=== PATIENT | female | born 1975 | race Caucasian/White ===

== ENCOUNTER 2017-11-28 11:24 | Inpatient (IN) | payer BC, MEDICARE ==
[~2017-11-28] VITALS: Ht 162.6 cm; Wt 60.3 kg
[2017-11-28] MEDS ORDERED: VANCOMYCIN PER PHARMACY MC PRN (11:30)
[2017-11-28] MEDS ORDERED: PIPERACILLIN/TAZO/PMX 3.375GM 50 ML IV ONE (11:30)
[2017-11-28] MEDS ORDERED: SODIUM CHLORIDE FLUSH 10ML SYR IVF ONE (11:30)
[2017-11-28] MEDS ORDERED: MIDAZOLAM HCL 25 MG in SODIUM CHLORIDE 0.9% 245 ML IV PRN (11:30)
[2017-11-28] MEDS ORDERED: FENTANYL PF 2,500 MCG in SODIUM CHLORIDE 0.9% 200 ML IV PRN ×2 (11:30→17:30)
[2017-11-28] MEDS ORDERED: SODIUM CHLORIDE 0.9% 1,000ML IVBOLUS ONE (11:30)
[2017-11-28] MEDS ORDERED: PROPOFOL 100 ML IV ONE (11:38)
[2017-11-28] MEDS ORDERED: PIPERACILLIN/TAZO/PMX 3.375GM 50 ML ONE (11:39)
[2017-11-28] MEDS ORDERED: PROPOFOL 100 ML IV PRN (12:00)
[2017-11-28] MEDS ORDERED: PLEASE ENTER HEIGHT AND WEIGHT MC SCH (12:00)
[2017-11-28 12:01] LABS: MICROSCOPIC NOT IND
[2017-11-28 12:04] LABS: CULTURE INDICATED? NO
[2017-11-28] MEDS ORDERED: FENTANYL PF 100 MCG/2ML ONE (12:13)
[2017-11-28] MEDS: PLEASE ENTER ALLERGIES MC SCH ×2 (12:30→13:01)
[2017-11-28 12:47] LABS: AMPHETAMINE SCREEN, URINE Negative (Negative); BARBITURATE SCREEN, URINE Negative (Negative); BENZODIAZEPINE SCREEN, URINE Positive (Negative); CANNABINOID SCREEN, URINE Negative (Negative); COCAINE SCREEN, URINE Negative (Negative); METHADONE SCREEN, URINE Negative (Negative); OPIATE SCREEN, URINE Negative (Negative)
[2017-11-28 12:53] LABS: RAPID INFLUENZA A Negative (Negative); RAPID INFLUENZA B Negative (Negative)
[2017-11-28] MEDS ORDERED: FENTANYL PF 100 MCG/2ML IVPush PRN ×2 (13:00→15:00)
[2017-11-28] MEDS ORDERED: VECURONIUM 10 MG ONE (13:24)
[2017-11-28 13:31] LABS: MEAN CORPUSCULAR HEMOGLOBIN 25.1 pg (27.0-34.8); MEAN CORPUSCULAR HGB CONC 31.4 g/dL (32.4-35.8); MEAN CORPUSCULAR VOLUME 79.8 fL (80-100); MEAN PLATELET VOLUME 7.5 fL (7.4-10.4); PLATELET COUNT 197 x10^3/uL (130-400); RED CELL DISTRIBUTION WIDTH 26.5 % (9.6-15.2)
[2017-11-28 13:42] LABS: ALANINE AMINOTRANSFERASE 57 U/L (12-78); ALBUMIN 2.5 g/dL (3.4-5.0); ANION GAP 8 mmol/L (5-15); CALCIUM 7.6 mg/dL (8.5-10.1); CHLORIDE 111 mmol/L (98-107)
[2017-11-28 13:46] LABS: ALKALINE PHOSPHATASE 135 U/L (45-117); BILIRUBIN,TOTAL 0.4 mg/dL (0.2-1.0); TOTAL PROTEIN 5.4 g/dL (6.4-8.2)
[2017-11-28 13:51] LABS: BASOPHILS # (AUTO) 0.02 x10^3/uL (0-0.1); BASOPHILS % (AUTO) 0 % (0-1); EOSINOPHILS # (AUTO) 0.02 x10^3/uL (0-0.4); EOSINOPHILS % (AUTO) 0 % (1-7); LYMPHOCYTES # (AUTO) 0.43 x10^3/uL (1-3.4); LYMPHOCYTES % (AUTO) 3 % (22-44); MD SCAN; MONOCYTES # (AUTO) 0.43 x10^3/uL (0.2-0.8); MONOCYTES % (AUTO) 3 % (2-9); NEUTROPHILS # (AUTO) 11.77 x10^3/uL (1.8-6.8); NEUTROPHILS % (AUTO) 93 % (42-75)
[2017-11-28] MEDS ORDERED: VECURONIUM 10 MG IVPush ONE (14:00)
[2017-11-28] MEDS ORDERED: NOREPINEPHRINE 4 MG in SODIUM CHLORIDE 0.9% 246 ML IV PRN (14:00)
[2017-11-28] MEDS ORDERED: FENTANYL PF 100 MCG/2ML IV ONE (14:00)
[2017-11-28] MEDS ORDERED: POLYETHYLENE GLYCOL 17 GM PACKET PO PRN (14:30)
[2017-11-28] MEDS ORDERED: BISACODYL 10 MG SUPP PR PRN ×2 (14:30→15:00)
[2017-11-28] MEDS ORDERED: LIDOCAINE-MPF 1%, 2ML ENDO PRN (15:00)
[2017-11-28] MEDS ORDERED: FAMOTIDINE 20 MG/2 ML IV SCH (15:00)
[2017-11-28] MEDS ORDERED: PHARMACY MAY ADJ FOR RENAL FX MC SCH (15:00)
[2017-11-28] MEDS ORDERED: SENNOSIDES 8.8 MG/5 ML ORAL SOL NG PRN (15:00)
[2017-11-28] MEDS ORDERED: LACTULOSE 20 GM/30 ML UDC NG PRN (15:00)
[2017-11-28] MEDS ORDERED: SENNA/DOCUSATE TABLET NG PRN (15:00)
[2017-11-28] MEDS: ENOXAPARIN 40 MG/0.4 ML SQ SCH (16:52)
[2017-11-28 17:37] LABS: TROPONIN I 0.025 ng/mL (0.000-0.045)
[2017-11-28] MEDS ORDERED: POTASSIUM CHLORIDE PMX 100 ML IV ONE (18:00)
[2017-11-28] MEDS ORDERED: MAGNESIUM SULFATE PMX 2GM/50ML 50 ML IV ONE (18:00)
[2017-11-28] MEDS: PROPOFOL 100 ML IV PRN (18:14)
[2017-11-28] MEDS: ALBUTEROL/IPRATROPIUM 2.5MG/0.5MG, 3 ML INLINE SCH ×2 (19:00→22:21)
[2017-11-28] MEDS: FAMOTIDINE 20 MG/2 ML IVPush SCH (20:20)
[2017-11-28 23:25] LABS: TROPONIN I 0.021 ng/mL (0.000-0.045)
[2017-11-29] MEDS: PROPOFOL 100 ML IV PRN (00:53)
[2017-11-29] MEDS: ALBUTEROL/IPRATROPIUM 2.5MG/0.5MG, 3 ML INLINE SCH ×2 (02:56→07:00)
[2017-11-29 03:30] VITALS: BP 98/59
[2017-11-29 04:51] LABS: ANION GAP 8 mmol/L (5-15); CALCIUM 7.6 mg/dL (8.5-10.1); CHLORIDE 112 mmol/L (98-107)
[2017-11-29 04:52] LABS: ALANINE AMINOTRANSFERASE 42 U/L (12-78); ALBUMIN 2.2 g/dL (3.4-5.0)
[2017-11-29 04:54] LABS: ALKALINE PHOSPHATASE 108 U/L (45-117); BILIRUBIN,TOTAL 0.6 mg/dL (0.2-1.0); CREATININE 0.81 mg/dL (0.55-1.02); TOTAL PROTEIN 4.8 g/dL (6.4-8.2)
[2017-11-29 05:02] LABS: MEAN CORPUSCULAR HGB CONC 31.9 g/dL (32.4-35.8); MEAN CORPUSCULAR VOLUME 78.5 fL (80-100); MEAN PLATELET VOLUME 7.8 fL (7.4-10.4); PLATELET COUNT 176 x10^3/uL (130-400); RED BLOOD COUNT 3.78 x10^6/uL (3.82-5.3); RED CELL DISTRIBUTION WIDTH 26.5 % (9.6-15.2)
[2017-11-29 05:59] LABS: BASOPHILS # (AUTO) 0.03 x10^3/uL (0-0.1); BASOPHILS % (AUTO) 0 % (0-1); EOSINOPHILS % (AUTO) 2 % (1-7); LYMPHOCYTES # (AUTO) 1.18 x10^3/uL (1-3.4); LYMPHOCYTES % (AUTO) 18 % (22-44); MD SCAN; MONOCYTES # (AUTO) 0.47 x10^3/uL (0.2-0.8); MONOCYTES % (AUTO) 7 % (2-9); NEUTROPHILS # (AUTO) 4.93 x10^3/uL (1.8-6.8); NEUTROPHILS % (AUTO) 73 % (42-75)
[2017-11-29] MEDS: FAMOTIDINE 20 MG/2 ML IVPush SCH ×2 (09:29→20:00)
[2017-11-29] MEDS ORDERED: SUMATRIPTAN 100 MG TABLET PO ONE (09:30)
[2017-11-29] MEDS: NICOTINE 14MG/24 HR PATCH.TD24 TD SCH (12:19)
[2017-11-29] MEDS ORDERED: LORazepam 0.5MG TABLET PO ONE (12:30)
[2017-11-29] MEDS: SUMATRIPTAN 100 MG TABLET PO PRN (12:35)
[2017-11-29 14:14] LABS: HCG UR SG 1.008 (1.003-1.030)
[2017-11-29] MEDS ORDERED: CARV3.1212 PO (14:57)
[2017-11-29] MEDS ORDERED: SUMA100T3 PO (14:57)
[2017-11-29] MEDS ORDERED: TRAM50TA2 PO (14:57)
[2017-11-29] MEDS ORDERED: DULO60CA7 PO (14:57)
[2017-11-29] MEDS ORDERED: OLAN5TAB3 PO (14:57)
[2017-11-29] MEDS ORDERED: FURO40TA6 PO (14:57)
[2017-11-29] MEDS ORDERED: BACL-19 PO (14:57)
[2017-11-29] MEDS ORDERED: LEVO50TA5 PO (14:57)
[2017-11-29] MEDS ORDERED: FERR325T18 PO (14:57)
[2017-11-29] MEDS ORDERED: CLON-364 PO (14:57)
[2017-11-29] MEDS ORDERED: LISI-465 PO (14:57)
[2017-11-29] MEDS ORDERED: HYDR50TA13 PO (14:57)
[2017-11-29] MEDS ORDERED: TOPI100T24 PO (14:57)
[2017-11-29] MEDS: ENOXAPARIN 40 MG/0.4 ML SQ SCH (15:33)
[2017-11-29] MEDS: ACETAMINOPHEN 325 MG TABLET PO PRN ×2 (15:33→23:34)
[2017-11-29] MEDS: BACLOFEN 10 MG TABLET PO PRN (16:30)
[2017-11-29] MEDS: FERROUS SULFATE 325 MG TABLET PO SCH (17:39)
[2017-11-29 18:12] VITALS: BP 113/75
[2017-11-29 18:44] VITALS: BP 107/77
[2017-11-29] MEDS: OLANZAPINE 5 MG TABLET PO SCH (20:00)
[2017-11-29] MEDS: TOPIRAMATE 100 MG TABLET PO SCH (20:00)
[2017-11-29] MEDS: ALBUTEROL SULFATE 2.5 MG/3 ML NPPB PRN (22:45)
[2017-11-30 00:07] VITALS: BP 93/60
[2017-11-30] MEDS ORDERED: DIPHENHYDRAMINE 50 MG CAPSULE ONE (00:43)
[2017-11-30] MEDS: DIPHENHYDRAMINE 50 MG CAPSULE PO PRN ×2 (00:45→20:25)
[2017-11-30 05:35] LABS: MEAN CORPUSCULAR HEMOGLOBIN 24.9 pg (27.0-34.8); MEAN CORPUSCULAR HGB CONC 31.3 g/dL (32.4-35.8); MEAN CORPUSCULAR VOLUME 79.6 fL (80-100); MEAN PLATELET VOLUME 8.5 fL (7.4-10.4); PLATELET COUNT 182 x10^3/uL (130-400); RED BLOOD COUNT 4.16 x10^6/uL (3.82-5.3); RED CELL DISTRIBUTION WIDTH 26.9 % (9.6-15.2)
[2017-11-30 05:38] LABS: ANION GAP 7 mmol/L (5-15); CALCIUM 8.3 mg/dL (8.5-10.1); CHLORIDE 108 mmol/L (98-107); CREATININE 0.87 mg/dL (0.55-1.02)
[2017-11-30 06:19] LABS: BASOPHILS # (AUTO) 0.05 x10^3/uL (0-0.1); BASOPHILS % (AUTO) 1 % (0-1); EOSINOPHILS # (AUTO) 0.07 x10^3/uL (0-0.4); EOSINOPHILS % (AUTO) 1 % (1-7); LYMPHOCYTES # (AUTO) 1.52 x10^3/uL (1-3.4); LYMPHOCYTES % (AUTO) 17 % (22-44); MD SCAN; MONOCYTES # (AUTO) 0.71 x10^3/uL (0.2-0.8); MONOCYTES % (AUTO) 8 % (2-9); NEUTROPHILS # (AUTO) 6.45 x10^3/uL (1.8-6.8); NEUTROPHILS % (AUTO) 73 % (42-75)
[2017-11-30] MEDS ORDERED: FUROSEMIDE 40 MG TABLET PO SCH (09:00)
[2017-11-30 09:28] VITALS: BP 97/68
[2017-11-30] MEDS: CARVEDILOL 3.125 MG TABLET PO SCH (09:30)
[2017-11-30] MEDS: DULOXETINE 30 MG CAPSULE.DR PO SCH (09:30)
[2017-11-30] MEDS: LISINOPRIL 5 MG TABLET PO SCH (09:30)
[2017-11-30] MEDS: FERROUS SULFATE 325 MG TABLET PO SCH ×2 (09:31→20:24)
[2017-11-30] MEDS: FAMOTIDINE 20 MG/2 ML IVPush SCH (09:31)
[2017-11-30] MEDS: LEVOTHYROXINE 50 MCG TABLET PO SCH (09:31)
[2017-11-30] MEDS ORDERED: ONDA4TAB10 PO (11:51)
[2017-11-30] MEDS ORDERED: TRAM50TA2 PO (11:51)
[2017-11-30] MEDS ORDERED: CLON-364 PO (11:51)
[2017-11-30] MEDS ORDERED: BACL-19 PO (11:51)
[2017-11-30] MEDS ORDERED: TOPI100T24 PO (11:51)
[2017-11-30] MEDS ORDERED: ROPI0.5T2 PO (11:51)
[2017-11-30] MEDS ORDERED: ZIPR60CA2 PO (11:51)
[2017-11-30] MEDS ORDERED: MIRT45TA4 PO (11:51)
[2017-11-30] MEDS: NICOTINE 14MG/24 HR PATCH.TD24 TD SCH (12:06)
[2017-11-30 13:41] VITALS: BP 119/85
[2017-11-30] MEDS ORDERED: FUROSEMIDE 40 MG/4 ML IV ONE (15:00)
[2017-11-30] MEDS: ALBUTEROL SULFATE 2.5 MG/3 ML NPPB PRN (15:13)
[2017-11-30] MEDS: ENOXAPARIN 40 MG/0.4 ML SQ SCH (15:21)
[2017-11-30] MEDS ORDERED: OMNIPAQUE 350 MG/ML, 100ML BOTTLE ONE (16:57)
[2017-11-30 18:56] VITALS: BP 101/68
[2017-11-30] MEDS: OLANZAPINE 5 MG TABLET PO SCH (20:24)
[2017-11-30] MEDS: TOPIRAMATE 100 MG TABLET PO SCH (20:24)
[2017-11-30] MEDS: FAMOTIDINE 20 MG TABLET PO SCH (20:24)
[2017-11-30] MEDS: BACLOFEN 10 MG TABLET PO PRN (20:24)
[2017-12-01 00:58] VITALS: BP 98/63
[2017-12-01 02:53] VITALS: BP 108/82
[2017-12-01] MEDS ORDERED: PHARMACOKINETIC MONITORING MC PRN (03:30)
[2017-12-01] MEDS ORDERED: VANCOMYCIN PER PHARMACY MC PRN (03:30)
[2017-12-01] MEDS: CEFTRIAXONE PMX 1GM/50ML 50 ML IV SCH (03:41)
[2017-12-01] MEDS: ACETAMINOPHEN 325 MG TABLET PO PRN (03:51)
[2017-12-01] MEDS: VANCOMYCIN PMX 1GM/200ML 200 ML IV SCH ×2 (04:37→18:12)
[2017-12-01 05:30] LABS: CHLORIDE 107 mmol/L (98-107)
[2017-12-01 05:39] LABS: ALANINE AMINOTRANSFERASE 36 U/L (12-78); ALBUMIN 2.6 g/dL (3.4-5.0); ALKALINE PHOSPHATASE 154 U/L (45-117); ANION GAP 8 mmol/L (5-15); BILIRUBIN,TOTAL 0.5 mg/dL (0.2-1.0); CALCIUM 8.3 mg/dL (8.5-10.1); TOTAL PROTEIN 6.2 g/dL (6.4-8.2)
[2017-12-01 05:44] LABS: MEAN CORPUSCULAR HEMOGLOBIN 25.2 pg (27.0-34.8); MEAN CORPUSCULAR HGB CONC 31.8 g/dL (32.4-35.8); MEAN CORPUSCULAR VOLUME 79.2 fL (80-100); MEAN PLATELET VOLUME 8.7 fL (7.4-10.4); PLATELET COUNT 207 x10^3/uL (130-400); RED BLOOD COUNT 4.11 x10^6/uL (3.82-5.3); RED CELL DISTRIBUTION WIDTH 26.8 % (9.6-15.2)
[2017-12-01 06:13] LABS: MD MORPH REVIEW ONLY
[2017-12-01 06:16] LABS: BASOPHILS # (AUTO) 0.01 x10^3/uL (0-0.1); BASOPHILS % (AUTO) 0 % (0-1); EOSINOPHILS % (AUTO) 1 % (1-7); LYMPHOCYTES # (AUTO) 0.74 x10^3/uL (1-3.4); LYMPHOCYTES % (AUTO) 6 % (22-44); MONOCYTES % (AUTO) 7 % (2-9); NEUTROPHILS # (AUTO) 9.88 x10^3/uL (1.8-6.8); NEUTROPHILS % (AUTO) 86 % (42-75)
[2017-12-01 06:18] LABS: ANISOCYTOSIS 2+
[2017-12-01 06:19] LABS: MICROCYTOSIS 1+; OVALOCYTES 1+; POLYCHROMASIA 1+
[2017-12-01 06:22] LABS: HYPOCHROMIA 1+
[2017-12-01 06:23] LABS: <PLATELET ESTIMATE> ADEQUATE; <PLT MORPHOLOGY> NORMAL PLT MORPH
[2017-12-01 07:55] VITALS: BP 109/71
[2017-12-01] MEDS: DULOXETINE 30 MG CAPSULE.DR PO SCH (08:39)
[2017-12-01] MEDS: LISINOPRIL 5 MG TABLET PO SCH (08:40)
[2017-12-01] MEDS: FAMOTIDINE 20 MG TABLET PO SCH ×2 (08:40→22:16)
[2017-12-01] MEDS: FERROUS SULFATE 325 MG TABLET PO SCH ×2 (08:40→17:00)
[2017-12-01] MEDS: NICOTINE 14MG/24 HR PATCH.TD24 TD SCH (08:41)
[2017-12-01] MEDS: LEVOTHYROXINE 50 MCG TABLET PO SCH (08:41)
[2017-12-01] MEDS: CARVEDILOL 3.125 MG TABLET PO SCH (08:44)
[2017-12-01 14:00] VITALS: BP 108/76
[2017-12-01] MEDS ORDERED: POTASSIUM CHLORIDE 20 MEQ TAB.ER.PRT PO ONE ×2 (16:30→21:30)
[2017-12-01] MEDS: FUROSEMIDE 40 MG/4 ML IV SCH (17:00)
[2017-12-01] MEDS: ENOXAPARIN 40 MG/0.4 ML SQ SCH (18:12)
[2017-12-01 20:03] VITALS: BP 102/72
[2017-12-01] MEDS: DIPHENHYDRAMINE 50 MG CAPSULE PO PRN (22:15)
[2017-12-01] MEDS: OLANZAPINE 5 MG TABLET PO SCH (22:15)
[2017-12-01] MEDS: TOPIRAMATE 100 MG TABLET PO SCH (22:16)
[2017-12-01] MEDS: BACLOFEN 10 MG TABLET PO PRN (22:19)
[2017-12-02] MEDS: CEFTRIAXONE PMX 1GM/50ML 50 ML IV SCH (03:47)
[2017-12-02 04:00] VITALS: BP 105/75
[2017-12-02] MEDS: VANCOMYCIN PMX 1GM/200ML 200 ML IV SCH ×2 (05:29→17:55)
[2017-12-02 07:34] LABS: MEAN CORPUSCULAR HGB CONC 31.6 g/dL (32.4-35.8); MEAN CORPUSCULAR VOLUME 79.2 fL (80-100); MEAN PLATELET VOLUME 8.5 fL (7.4-10.4); PLATELET COUNT 242 x10^3/uL (130-400); RED BLOOD COUNT 4.39 x10^6/uL (3.82-5.3); RED CELL DISTRIBUTION WIDTH 26.3 % (9.6-15.2)
[2017-12-02 07:40] LABS: ALBUMIN 2.6 g/dL (3.4-5.0); ANION GAP 7 mmol/L (5-15); CALCIUM 8.6 mg/dL (8.5-10.1); CHLORIDE 109 mmol/L (98-107)
[2017-12-02 07:44] LABS: ALANINE AMINOTRANSFERASE 34 U/L (12-78); ALKALINE PHOSPHATASE 154 U/L (45-117); BILIRUBIN,TOTAL 0.5 mg/dL (0.2-1.0); CREATININE 0.95 mg/dL (0.55-1.02); TOTAL PROTEIN 6.6 g/dL (6.4-8.2)
[2017-12-02 07:49] LABS: BASOPHILS # (AUTO) 0.03 x10^3/uL (0-0.1); BASOPHILS % (AUTO) 0 % (0-1); EOSINOPHILS # (AUTO) 0.25 x10^3/uL (0-0.4); EOSINOPHILS % (AUTO) 2 % (1-7); LYMPHOCYTES # (AUTO) 0.98 x10^3/uL (1-3.4); LYMPHOCYTES % (AUTO) 9 % (22-44); MD SCAN; MONOCYTES # (AUTO) 0.77 x10^3/uL (0.2-0.8); MONOCYTES % (AUTO) 7 % (2-9); NEUTROPHILS # (AUTO) 8.48 x10^3/uL (1.8-6.8); NEUTROPHILS % (AUTO) 81 % (42-75)
[2017-12-02 08:00] VITALS: BP 106/77
[2017-12-02] MEDS: DULOXETINE 30 MG CAPSULE.DR PO SCH (08:03)
[2017-12-02] MEDS: FERROUS SULFATE 325 MG TABLET PO SCH ×2 (08:03→16:18)
[2017-12-02] MEDS: ACETAMINOPHEN 325 MG TABLET PO PRN (08:04)
[2017-12-02] MEDS: LEVOTHYROXINE 50 MCG TABLET PO SCH (08:05)
[2017-12-02] MEDS: LISINOPRIL 5 MG TABLET PO SCH (08:05)
[2017-12-02] MEDS: NICOTINE 14MG/24 HR PATCH.TD24 TD SCH (08:05)
[2017-12-02] MEDS: CARVEDILOL 3.125 MG TABLET PO SCH (08:05)
[2017-12-02] MEDS: FAMOTIDINE 20 MG TABLET PO SCH ×2 (08:06→21:44)
[2017-12-02] MEDS ORDERED: ONDANSETRON 2MG/ML, 2ML ONE (16:06)
[2017-12-02] MEDS: FUROSEMIDE 40 MG/4 ML IV SCH (16:17)
[2017-12-02] MEDS: ENOXAPARIN 40 MG/0.4 ML SQ SCH (16:19)
[2017-12-02] MEDS ORDERED: ONDANSETRON 4 MG TABLET PO PRN (16:30)
[2017-12-02] MEDS ORDERED: ONDANSETRON 2MG/ML, 2ML IVPush PRN (16:30)
[2017-12-02] MEDS ORDERED: CARVEDILOL 3.125 MG TABLET PO ONE (17:00)
[2017-12-02 17:31] VITALS: BP 109/77
[2017-12-02] MEDS ORDERED: LABETALOL 5MG/ML, 20ML ONE (17:47)
[2017-12-02] MEDS ORDERED: LABETALOL 5MG/ML, 20ML IVPush ONE (18:00)
[2017-12-02 18:44] LABS: TROPONIN I < 0.015 ng/mL (0.000-0.045)
[2017-12-02 20:19] VITALS: BP 90/61
[2017-12-02] MEDS: BACLOFEN 10 MG TABLET PO PRN (21:44)
[2017-12-02] MEDS: SUMATRIPTAN 100 MG TABLET PO PRN (21:44)
[2017-12-02] MEDS: DIPHENHYDRAMINE 50 MG CAPSULE PO PRN (21:44)
[2017-12-02] MEDS: TOPIRAMATE 100 MG TABLET PO SCH (21:44)
[2017-12-02] MEDS: OLANZAPINE 5 MG TABLET PO SCH (21:45)
[2017-12-02 23:31] LABS: TROPONIN I < 0.015 ng/mL (0.000-0.045)
[2017-12-03 02:15] VITALS: BP 90/65
[2017-12-03] MEDS: CEFTRIAXONE PMX 1GM/50ML 50 ML IV SCH (03:07)
[2017-12-03] MEDS: VANCOMYCIN PMX 1GM/200ML 200 ML IV SCH (05:19)
[2017-12-03 05:46] LABS: ALBUMIN 2.7 g/dL (3.4-5.0); ANION GAP 7 mmol/L (5-15); CALCIUM 8.4 mg/dL (8.5-10.1); CHLORIDE 104 mmol/L (98-107)
[2017-12-03 05:52] LABS: ALANINE AMINOTRANSFERASE 49 U/L (12-78); ALKALINE PHOSPHATASE 194 U/L (45-117); BILIRUBIN,TOTAL 0.4 mg/dL (0.2-1.0); TOTAL PROTEIN 6.7 g/dL (6.4-8.2); TROPONIN I < 0.015 ng/mL (0.000-0.045)
[2017-12-03 06:06] LABS: MEAN CORPUSCULAR HEMOGLOBIN 25.2 pg (27.0-34.8); MEAN CORPUSCULAR HGB CONC 31.4 g/dL (32.4-35.8); MEAN CORPUSCULAR VOLUME 80.3 fL (80-100); MEAN PLATELET VOLUME 8.7 fL (7.4-10.4); PLATELET COUNT 282 x10^3/uL (130-400); RED BLOOD COUNT 4.23 x10^6/uL (3.82-5.3); RED CELL DISTRIBUTION WIDTH 25.9 % (9.6-15.2)
[2017-12-03 06:33] LABS: BASOPHILS # (AUTO) 0.05 x10^3/uL (0-0.1); BASOPHILS % (AUTO) 1 % (0-1); EOSINOPHILS # (AUTO) 0.09 x10^3/uL (0-0.4); EOSINOPHILS % (AUTO) 1 % (1-7); LYMPHOCYTES # (AUTO) 1.77 x10^3/uL (1-3.4); LYMPHOCYTES % (AUTO) 18 % (22-44); MD SCAN; MONOCYTES # (AUTO) 1.02 x10^3/uL (0.2-0.8); MONOCYTES % (AUTO) 11 % (2-9); NEUTROPHILS # (AUTO) 6.66 x10^3/uL (1.8-6.8); NEUTROPHILS % (AUTO) 70 % (42-75)
[2017-12-03 07:32] VITALS: BP 98/67
[2017-12-03] MEDS: CARVEDILOL 3.125 MG TABLET PO SCH (09:00)
[2017-12-03] MEDS: LISINOPRIL 5 MG TABLET PO SCH (09:00)
[2017-12-03] MEDS: LEVOTHYROXINE 50 MCG TABLET PO SCH (09:08)
[2017-12-03] MEDS: FERROUS SULFATE 325 MG TABLET PO SCH ×2 (09:09→17:30)
[2017-12-03] MEDS: FAMOTIDINE 20 MG TABLET PO SCH ×2 (09:09→22:27)
[2017-12-03] MEDS: DULOXETINE 30 MG CAPSULE.DR PO SCH (09:09)
[2017-12-03] MEDS: NICOTINE 14MG/24 HR PATCH.TD24 TD SCH (11:43)
[2017-12-03 16:00] VITALS: BP 93/66
[2017-12-03] MEDS: ENOXAPARIN 40 MG/0.4 ML SQ SCH (17:30)
[2017-12-03 20:59] VITALS: BP 95/66
[2017-12-03] MEDS: ALBUTEROL SULFATE 2.5 MG/3 ML NPPB PRN (21:13)
[2017-12-03] MEDS ORDERED: CAPSAICIN CRM 0.025%, 60GM TP PRN (22:00)
[2017-12-03] MEDS: OLANZAPINE 5 MG TABLET PO SCH (22:26)
[2017-12-03] MEDS: TOPIRAMATE 100 MG TABLET PO SCH (22:27)
[2017-12-03] MEDS: BACLOFEN 10 MG TABLET PO PRN (22:44)
[2017-12-04 01:43] VITALS: BP 94/61
[2017-12-04] MEDS: CEFTRIAXONE PMX 1GM/50ML 50 ML IV SCH (03:51)
[2017-12-04] MEDS ORDERED: VANCOMYCIN 1,200 MG in SODIUM CHLORIDE 0.9% 250 ML IV SCH (05:00)
[2017-12-04 06:32] LABS: ANION GAP 8 mmol/L (5-15); CHLORIDE 105 mmol/L (98-107); CREATININE 0.87 mg/dL (0.55-1.02)
[2017-12-04 06:33] LABS: ALANINE AMINOTRANSFERASE 39 U/L (12-78); ALBUMIN 2.4 g/dL (3.4-5.0)
[2017-12-04 06:37] LABS: ALKALINE PHOSPHATASE 182 U/L (45-117); BILIRUBIN,TOTAL 0.3 mg/dL (0.2-1.0); TOTAL PROTEIN 5.7 g/dL (6.4-8.2)
[2017-12-04 06:53] LABS: MEAN CORPUSCULAR HEMOGLOBIN 25.2 pg (27.0-34.8); MEAN CORPUSCULAR HGB CONC 31.4 g/dL (32.4-35.8); MEAN CORPUSCULAR VOLUME 80.2 fL (80-100); MEAN PLATELET VOLUME 8.5 fL (7.4-10.4); PLATELET COUNT 228 x10^3/uL (130-400); RED BLOOD COUNT 3.63 x10^6/uL (3.82-5.3); RED CELL DISTRIBUTION WIDTH 26.2 % (9.6-15.2)
[2017-12-04 07:50] VITALS: BP 100/69
[2017-12-04 07:53] LABS: BASOPHILS # (AUTO) 0.03 x10^3/uL (0-0.1); BASOPHILS % (AUTO) 0 % (0-1); EOSINOPHILS # (AUTO) 0.17 x10^3/uL (0-0.4); EOSINOPHILS % (AUTO) 2 % (1-7); LYMPHOCYTES % (AUTO) 11 % (22-44); MD SCAN; MONOCYTES # (AUTO) 0.66 x10^3/uL (0.2-0.8); MONOCYTES % (AUTO) 8 % (2-9); NEUTROPHILS # (AUTO) 6.63 x10^3/uL (1.8-6.8); NEUTROPHILS % (AUTO) 79 % (42-75)
[2017-12-04] MEDS ORDERED: FURO40TA6 PO (08:16)
[2017-12-04] MEDS ORDERED: SULF1TAB24 PO (08:22)
[2017-12-04 09:30] VITALS: BP 104/69
[2017-12-04] MEDS: LEVOTHYROXINE 50 MCG TABLET PO SCH (09:32)
[2017-12-04] MEDS: DULOXETINE 30 MG CAPSULE.DR PO SCH (09:32)
[2017-12-04] MEDS: CARVEDILOL 3.125 MG TABLET PO SCH (09:32)
[2017-12-04] MEDS: LISINOPRIL 5 MG TABLET PO SCH (09:32)
[2017-12-04] MEDS: FERROUS SULFATE 325 MG TABLET PO SCH (09:32)
[2017-12-04] MEDS: FAMOTIDINE 20 MG TABLET PO SCH (09:33)
[2017-12-04] MEDS: NICOTINE 14MG/24 HR PATCH.TD24 TD SCH (11:35)
== END 2017-12-04 13:38 | disposition home or self-care (01) | DRG 871 ==
LOC: ED 11:51 → EDIP 11:52 → ED 12:11 → CCU 13:08 → 5SO 11-29 18:06 → DCLOUNGE 12-04 12:53
PROVIDERS: ADMIT Hospitalist; ATTEND Hospitalist
PROC: 0T9B70Z Drainage of Bladder with Drainage Device, Via Natural or Artificial Opening (ICD-10-PCS; principal; 2017-11-28)
PROC: 5A1935Z Respiratory Ventilation, Less than 24 Consecutive Hours (ICD-10-PCS; 2017-11-28)
PROC: 0BH17EZ Insertion of Endotracheal Airway into Trachea, Via Natural or Artificial Opening (ICD-10-PCS; 2017-11-28)
DX: A41.9 Sepsis, unspecified organism (principal); I50.23 Acute on chronic systolic (congestive) heart failure; J96.01 Acute respiratory failure with hypoxia; E43 Unspecified severe protein-calorie malnutrition; Z99.11 Dependence on respirator [ventilator] status; F15.90 Other stimulant use, unspecified, uncomplicated; D50.9 Iron deficiency anemia, unspecified; E87.6 Hypokalemia; F41.9 Anxiety disorder, unspecified; I27.20 Pulmonary hypertension, unspecified; I34.0 Nonrheumatic mitral (valve) insufficiency; F32.9 Major depressive disorder, single episode, unspecified; F17.200 Nicotine dependence, unspecified, uncomplicated; Z71.51 Drug abuse counseling and surveillance of drug abuser; Z71.6 Tobacco abuse counseling; Z71.41 Alcohol abuse counseling and surveillance of alcoholic; Z85.3 Personal history of malignant neoplasm of breast; Z86.718 Personal history of other venous thrombosis and embolism; Z90.13 Acquired absence of bilateral breasts and nipples; Z92.21 Personal history of antineoplastic chemotherapy; Z68.22 Body mass index [BMI] 22.0-22.9, adult
CPT/HCPCS: 36415; 36600; 51702; 71045; 71275; 80048; 80053; 80202; 80307; 81003; 81025; 82533; 82803; 83605; 83735; 83880; 84100; 84132; 84145; 84478; 84484; 85025; 87040; 87070; 87077; 87081; 87086; 87147; 87186; 87205; 87400; 93005; 93306; 93970; 94002; 94003; 94640; 96365; 96375; J0696; J1650; J1940; J2405; J2543; J2704; J3010; J3370; J3480; J7613; J7620; Q9967; J3475; J7030; J7050; S0028

== ENCOUNTER 2018-01-19 00:41 | Inpatient (IN) | payer BC, MEDICARE ==
[~2018-01-19] VITALS: Ht 175.3 cm; Wt 56.4 kg
[~2018-01-19 00:41] MED LIST: BACL-19 PO; CARV3.1212 PO; CLON-364 PO; DULO60CA7 PO; FERR325T18 PO; FURO40TA6 PO; HYDR50TA13 PO; LEVO50TA5 PO; LISI-465 PO; MIRT45TA4 PO; OLAN5TAB3 PO; ONDA4TAB10 PO; ROPI0.5T2 PO; SULF1TAB24 PO; SUMA100T3 PO; TOPI100T24 PO; TRAM50TA2 PO; ZIPR60CA2 PO
[2018-01-19] MEDS ORDERED: LAMO100T5 PO (01:03)
[2018-01-19] MEDS ORDERED: NOREPINEPHRINE 4 MG in SODIUM CHLORIDE 0.9% 246 ML IV PRN (01:30)
[2018-01-19] MEDS ORDERED: HYDR25CA PO (01:31)
[2018-01-19 01:33] LABS: MEAN CORPUSCULAR HEMOGLOBIN 25.2 pg (27.0-34.8); MEAN CORPUSCULAR HGB CONC 31.8 g/dL (32.4-35.8); MEAN CORPUSCULAR VOLUME 79.3 fL (80-100); MEAN PLATELET VOLUME 8.3 fL (7.4-10.4); PLATELET COUNT 331 x10^3/uL (130-400); RED BLOOD COUNT 6.07 x10^6/uL (3.82-5.3); RED CELL DISTRIBUTION WIDTH 21.3 % (9.6-15.2)
[2018-01-19 01:40] LABS: ALBUMIN 2.8 g/dL (3.4-5.0); ANION GAP 11 mmol/L (5-15); CALCIUM 8.1 mg/dL (8.5-10.1); CHLORIDE 102 mmol/L (98-107); CREATININE 1.25 mg/dL (0.55-1.02)
[2018-01-19 01:43] LABS: TROPONIN I 0.022 ng/mL (0.000-0.045)
[2018-01-19] MEDS ORDERED: CEFTRIAXONE PMX 1GM/50ML 50 ML ONE (01:50)
[2018-01-19] MEDS ORDERED: VANCOMYCIN 1,200 MG in SODIUM CHLORIDE 0.9% 250 ML IV ONE (02:00)
[2018-01-19] MEDS ORDERED: VANCOMYCIN PER PHARMACY IV ONE (02:00)
[2018-01-19] MEDS ORDERED: CEFTRIAXONE PMX 1GM/50ML 50 ML IVPB ONE (02:00)
[2018-01-19] MEDS ORDERED: SODIUM CHLORIDE 0.9% 1,000ML IVBOLUS ONE (02:00)
[2018-01-19 02:11] LABS: BASOPHILS % (AUTO) 0 % (0-1); EOSINOPHILS % (AUTO) 0 % (1-7); LYMPHOCYTES # (AUTO) 0.88 x10^3/uL (1-3.4); LYMPHOCYTES % (AUTO) 5 % (22-44); MD SCAN; MONOCYTES # (AUTO) 0.77 x10^3/uL (0.2-0.8); MONOCYTES % (AUTO) 4 % (2-9); NEUTROPHILS # (AUTO) 17.97 x10^3/uL (1.8-6.8); NEUTROPHILS % (AUTO) 92 % (42-75)
[2018-01-19] MEDS ORDERED: ONDANSETRON 2MG/ML, 2ML IVPush PRN (04:30)
[2018-01-19 05:05] VITALS: BP 100/69
[2018-01-19] MEDS ORDERED: hydrALAzine 20 MG/ML, 1ML IVPush PRN (09:30)
[2018-01-19] MEDS ORDERED: ONDANSETRON ODT 4 MG PO PRN (09:30)
[2018-01-19] MEDS ORDERED: ACETAMINOPHEN 325 MG TABLET PO PRN (09:30)
[2018-01-19] MEDS ORDERED: DOCUSATE 100 MG CAPSULE PO PRN (09:30)
[2018-01-19] MEDS ORDERED: POLYETHYLENE GLYCOL 17 GM PACKET PO PRN (09:30)
[2018-01-19] MEDS ORDERED: BISACODYL 10 MG SUPP PR PRN (09:30)
[2018-01-19 09:52] VITALS: BP 104/71
[2018-01-19] MEDS ORDERED: HYDROXYZINE PAMOATE 50MG CAP ONE (10:12)
[2018-01-19 10:31] LABS: MICROSCOPIC NOT IND
[2018-01-19 10:33] LABS: CULTURE INDICATED? NO
[2018-01-19 10:54] LABS: TROPONIN I 0.025 ng/mL (0.000-0.045)
[2018-01-19] MEDS: HEPARIN 5,000 UNITS/ML, 1ML SQ SCH ×2 (11:14→18:30)
[2018-01-19] MEDS: HYDROXYZINE PAMOATE 25MG CAP PO SCH ×3 (11:14→20:30)
[2018-01-19 13:47] VITALS: BP 101/72
[2018-01-19 16:24] LABS: TROPONIN I 0.028 ng/mL (0.000-0.045)
[2018-01-19] MEDS: POTASSIUM CHLORIDE 20 MEQ TAB.ER.PRT PO SCH (16:25)
[2018-01-19] MEDS ORDERED: NICOTINE 14MG/24 HR PATCH.TD24 ONE (16:42)
[2018-01-19] MEDS ORDERED: NICOTINE 14MG/24 HR PATCH.TD24 TD SCH (17:00)
[2018-01-19] MEDS: SODIUM CHLORIDE FLUSH 10ML SYR IVF SCH (20:29)
[2018-01-19] MEDS: BACLOFEN 10 MG TABLET PO SCH (20:29)
[2018-01-19] MEDS: ZIPRASIDONE 20MG CAPSULE PO SCH (20:30)
[2018-01-19] MEDS: SUMATRIPTAN 100 MG TABLET PO SCH (20:30)
[2018-01-19 20:39] VITALS: BP 101/69
[2018-01-19] MEDS ORDERED: ROPINIROLE 0.5MG TABLET PO SCH (21:00)
[2018-01-19] MEDS ORDERED: OLANZAPINE 5 MG TABLET PO SCH (21:00)
[2018-01-19] MEDS ORDERED: TOPIRAMATE 100 MG TABLET PO SCH (21:00)
[2018-01-19] MEDS ORDERED: LAMOTRIGINE 100 MG TABLET PO SCH (21:00)
[2018-01-19] MEDS ORDERED: MIRTAZAPINE 15 MG TAB.RAPDIS PO SCH (21:00)
[2018-01-19] MEDS ORDERED: NICOTINE GUM 2 MG BC PRN (21:30)
[2018-01-19 21:34] VITALS: BP 93/63
[2018-01-20 00:35] VITALS: BP 109/75
[2018-01-20] MEDS ORDERED: LORazepam 1MG TABLET PO PRN (01:30)
[2018-01-20] MEDS: HEPARIN 5,000 UNITS/ML, 1ML SQ SCH ×2 (05:27→14:21)
[2018-01-20] MEDS: HYDROXYZINE PAMOATE 25MG CAP PO SCH ×2 (05:28→11:23)
[2018-01-20 05:45] LABS: BASOPHILS # (AUTO) 0.02 x10^3/uL (0-0.1); BASOPHILS % (AUTO) 0 % (0-1); EOSINOPHILS # (AUTO) 0.09 x10^3/uL (0-0.4); EOSINOPHILS % (AUTO) 1 % (1-7); LYMPHOCYTES # (AUTO) 2.03 x10^3/uL (1-3.4); LYMPHOCYTES % (AUTO) 28 % (22-44); MD NO; MEAN CORPUSCULAR HGB CONC 31.2 g/dL (32.4-35.8); MEAN CORPUSCULAR VOLUME 80.4 fL (80-100); MEAN PLATELET VOLUME 8.5 fL (7.4-10.4); MONOCYTES % (AUTO) 10 % (2-9); NEUTROPHILS # (AUTO) 4.45 x10^3/uL (1.8-6.8); NEUTROPHILS % (AUTO) 61 % (42-75); PLATELET COUNT 231 x10^3/uL (130-400); RED BLOOD COUNT 4.28 x10^6/uL (3.82-5.3); RED CELL DISTRIBUTION WIDTH 21.5 % (9.6-15.2)
[2018-01-20 05:52] LABS: CHLORIDE 110 mmol/L (98-107)
[2018-01-20] MEDS ORDERED: LEVOTHYROXINE 50 MCG TABLET PO SCH (06:00)
[2018-01-20 06:01] LABS: ALANINE AMINOTRANSFERASE 24 U/L (12-78); ALBUMIN 2.7 g/dL (3.4-5.0); ALKALINE PHOSPHATASE 134 U/L (45-117); ANION GAP 6 mmol/L (5-15); BILIRUBIN,TOTAL 0.4 mg/dL (0.2-1.0); CALCIUM 8.2 mg/dL (8.5-10.1); CREATININE 1.05 mg/dL (0.55-1.02); TOTAL PROTEIN 5.9 g/dL (6.4-8.2)
[2018-01-20 07:15] VITALS: BP 96/61
[2018-01-20] MEDS ORDERED: LISINOPRIL 5 MG TABLET PO SCH (09:00)
[2018-01-20] MEDS ORDERED: CARVEDILOL 3.125 MG TABLET PO SCH (09:00)
[2018-01-20] MEDS ORDERED: FUROSEMIDE 20 MG TABLET PO SCH (09:00)
[2018-01-20] MEDS ORDERED: DULOXETINE 30 MG CAPSULE.DR PO SCH (09:00)
[2018-01-20] MEDS: POTASSIUM CHLORIDE 20 MEQ TAB.ER.PRT PO SCH (10:07)
[2018-01-20] MEDS: SUMATRIPTAN 100 MG TABLET PO SCH (10:08)
[2018-01-20] MEDS: BACLOFEN 10 MG TABLET PO SCH (10:08)
[2018-01-20] MEDS: ZIPRASIDONE 20MG CAPSULE PO SCH (10:08)
[2018-01-20] MEDS: SODIUM CHLORIDE FLUSH 10ML SYR IVF SCH (10:43)
[2018-01-20] MEDS ORDERED: ALPR-475 PO (11:50)
[2018-01-20] MEDS ORDERED: CARV3.1212 PO (12:40)
[2018-01-20 13:19] VITALS: BP 108/76
== END 2018-01-20 15:16 | disposition home or self-care (01) | DRG 682 ==
LOC: ED 01:58 → EDIP 04:25 → 5SO 04:55
PROVIDERS: ADMIT Internal Medicine; ATTEND Internal Medicine
DX: N17.0 Acute kidney failure with tubular necrosis (principal); J96.20 Acute and chronic respiratory failure, unspecified whether with hypoxia or hypercapnia; I50.43 Acute on chronic combined systolic (congestive) and diastolic (congestive) heart failure; E44.0 Moderate protein-calorie malnutrition; I42.9 Cardiomyopathy, unspecified; F31.9 Bipolar disorder, unspecified; I34.0 Nonrheumatic mitral (valve) insufficiency; F17.210 Nicotine dependence, cigarettes, uncomplicated; E87.6 Hypokalemia; D72.829 Elevated white blood cell count, unspecified; D64.9 Anemia, unspecified; E03.9 Hypothyroidism, unspecified; F41.9 Anxiety disorder, unspecified; G25.81 Restless legs syndrome; F15.90 Other stimulant use, unspecified, uncomplicated; M54.5 Low back pain; R73.9 Hyperglycemia, unspecified; G43.909 Migraine, unspecified, not intractable, without status migrainosus; I27.20 Pulmonary hypertension, unspecified; I95.2 Hypotension due to drugs; Z85.3 Personal history of malignant neoplasm of breast; Z90.13 Acquired absence of bilateral breasts and nipples; Z68.26 Body mass index [BMI] 26.0-26.9, adult
CPT/HCPCS: 36415; 71045; 80048; 80053; 81003; 82040; 83605; 83735; 83880; 84132; 84145; 84443; 84484; 85025; 87040; 93005; 93306; 96365; 96366; 96368; J0696; J1644; J3370; J7030; J7050

== ENCOUNTER → 2018-03-05 | Outpatient (CLI) | payer BC, MEDICARE ==
[~2018-03-05] MED LIST changes: +ALPR-475 PO; +HYDR25CA PO; +LAMO100T5 PO
== END | disposition home or self-care (01) ==
LOC: CFH 07:28
PROVIDERS: ATTEND Internal Medicine Cardiovascular Disease
DX: I42.9 Cardiomyopathy, unspecified (principal); I95.9 Hypotension, unspecified
CPT/HCPCS: 78452; A9502

== ENCOUNTER → 2018-03-12 | Outpatient (CLI) | payer BC, MEDICARE ==
[~2018-03-12] MED LIST changes: +REGADENOSON 0.4 MG/5 ML SYRINGE ONE
== END | disposition home or self-care (01) ==
LOC: RAD 10:22
PROVIDERS: ATTEND Internal Medicine Cardiovascular Disease
DX: I42.8 Other cardiomyopathies (principal); I44.7 Left bundle-branch block, unspecified
CPT/HCPCS: 78452; 93017; A9502; J2785

== ENCOUNTER 2018-03-13 18:37 | Inpatient (IN) | payer BC, MEDICARE ==
[~2018-03-13] VITALS: Ht 175.3 cm; Wt 59.3 kg
[~2018-03-13 18:37] MED LIST changes: -REGADENOSON 0.4 MG/5 ML SYRINGE ONE
[2018-03-13 21:05] LABS: AMPHETAMINE SCREEN, URINE Negative (Negative); BARBITURATE SCREEN, URINE Negative (Negative); BENZODIAZEPINE SCREEN, URINE Negative (Negative); CANNABINOID SCREEN, URINE Negative (Negative); COCAINE SCREEN, URINE Negative (Negative); METHADONE SCREEN, URINE Negative (Negative); OPIATE SCREEN, URINE Negative (Negative)
[2018-03-13] MEDS ORDERED: POLYETHYLENE GLYCOL 17 GM PACKET PO PRN (22:00)
[2018-03-13] MEDS ORDERED: PROMETHAZINE 25 MG/ML, 1ML IM PRN (22:00)
[2018-03-13] MEDS ORDERED: hydrALAzine 20 MG/ML, 1ML IVPush PRN (22:00)
[2018-03-13] MEDS ORDERED: ENOXAPARIN 40 MG/0.4 ML SQ SCH (22:00)
[2018-03-13] MEDS ORDERED: ONDANSETRON ODT 4 MG PO PRN (22:00)
[2018-03-13] MEDS ORDERED: ONDANSETRON 2MG/ML, 2ML IVPush PRN (22:00)
[2018-03-13] MEDS ORDERED: morphine SULFATE 10 MG/ML, 1ML IVPush PRN (22:00)
[2018-03-13] MEDS ORDERED: OXYcodone IR 5MG TABLET PO PRN (22:00)
[2018-03-13] MEDS ORDERED: ENALAPRILAT 1.25 MG/ML, 2ML IVPush PRN (22:00)
[2018-03-13] MEDS ORDERED: DOCUSATE 100 MG CAPSULE PO PRN (22:00)
[2018-03-13] MEDS ORDERED: BISACODYL 10 MG SUPP PR PRN (22:00)
[2018-03-13] MEDS: METOPROLOL SUCCINATE 25 MG TAB.ER.24H PO SCH (22:30)
[2018-03-13] MEDS ORDERED: FUROSEMIDE 20 MG/2 ML IV SCH (22:30)
[2018-03-13 23:28] LABS: FREE T4 (FREE THYROXINE) 1.14 ng/dL (0.76-1.46); THYROID STIMULATING HORMONE 5.8 mIU/L (0.358-3.740)
[2018-03-14] MEDS ORDERED: ALBUTEROL SULFATE 2.5 MG/3 ML NPPB PRN (01:30)
[2018-03-14 01:42] VITALS: BP 89/67
[2018-03-14 02:04] VITALS: BP 89/67
[2018-03-14 02:13] LABS: BASOPHILS # (AUTO) 0.05 x10^3/uL (0-0.1); BASOPHILS % (AUTO) 1 % (0-1); EOSINOPHILS # (AUTO) 0.07 x10^3/uL (0-0.4); EOSINOPHILS % (AUTO) 1 % (1-7); LYMPHOCYTES # (AUTO) 1.71 x10^3/uL (1-3.4); LYMPHOCYTES % (AUTO) 30 % (22-44); MD NO; MEAN CORPUSCULAR HEMOGLOBIN 24.9 pg (27.0-34.8); MEAN CORPUSCULAR HGB CONC 31.4 g/dL (32.4-35.8); MEAN CORPUSCULAR VOLUME 79.5 fL (80-100); MONOCYTES # (AUTO) 0.76 x10^3/uL (0.2-0.8); MONOCYTES % (AUTO) 13 % (2-9); NEUTROPHILS # (AUTO) 3.13 x10^3/uL (1.8-6.8); NEUTROPHILS % (AUTO) 55 % (42-75); PLATELET COUNT 319 x10^3/uL (130-400); RED BLOOD COUNT 4.46 x10^6/uL (3.82-5.3)
[2018-03-14 02:21] LABS: ALBUMIN 2.6 g/dL (3.4-5.0); ANION GAP 7 mmol/L (5-15); CALCIUM 8.4 mg/dL (8.5-10.1); CHLORIDE 100 mmol/L (98-107)
[2018-03-14 02:26] LABS: TROPONIN I < 0.015 ng/mL (0.000-0.045)
[2018-03-14 02:27] LABS: ALANINE AMINOTRANSFERASE 72 U/L (12-78); ALKALINE PHOSPHATASE 202 U/L (45-117); BILIRUBIN,TOTAL 0.7 mg/dL (0.2-1.0); CHOL/HDL RATIO 3.6; CHOLESTEROL, TOTAL 90 mg/dL (140-239); CREATININE 1.52 mg/dL (0.55-1.02); HDL CHOL % 28 % (28-40); HDL CHOLESTEROL (DIRECT) 25 mg/dL (40-60); LDL CHOLESTEROL,CALCULATED 56 mg/dL (54-169); LDL/HDL RATIO 2.2 (0.5-3.0); TOTAL PROTEIN 5.6 g/dL (6.4-8.2); TRIGLYCERIDES 45 mg/dL (50-200); VLDL CHOLESTEROL 9 mg/dL (0-25)
[2018-03-14 05:00] VITALS: BP 97/70
[2018-03-14] MEDS: METOPROLOL SUCCINATE 25 MG TAB.ER.24H PO SCH (05:07)
[2018-03-14] MEDS: ACETAMINOPHEN 325 MG TABLET PO PRN ×2 (05:07→09:59)
[2018-03-14] MEDS ORDERED: MAGNESIUM SULFATE PMX 2GM/50ML 50 ML IV ONE (07:30)
[2018-03-14 07:44] LABS: MICROSCOPIC NOT IND
[2018-03-14 07:55] LABS: CULTURE INDICATED? NO
[2018-03-14 08:22] LABS: TROPONIN I < 0.015 ng/mL (0.000-0.045)
[2018-03-14] MEDS ORDERED: FUROSEMIDE 20 MG/2 ML IV SCH (09:00)
[2018-03-14 09:50] VITALS: BP 94/66
[2018-03-14] MEDS ORDERED: SODIUM CHLORIDE 0.9% 1,000 ML IV ONE (10:15)
[2018-03-14 11:57] LABS: AMPHETAMINE SCREEN, URINE Negative (Negative); BARBITURATE SCREEN, URINE Negative (Negative); BENZODIAZEPINE SCREEN, URINE Negative (Negative); CANNABINOID SCREEN, URINE Negative (Negative); COCAINE SCREEN, URINE Negative (Negative); METHADONE SCREEN, URINE Negative (Negative); OPIATE SCREEN, URINE Positive (Negative)
[2018-03-15 19:00] LABS: HEMOGLOBIN A1C 6.2 % (4.2-6.3)
== END 2018-03-14 15:13 | disposition left against medical advice (07) | DRG 291 ==
LOC: ED 18:56 → EDIP 22:09 → 5SO 23:35
PROVIDERS: ADMIT Internal Medicine; ATTEND Internal Medicine
DX: I11.0 Hypertensive heart disease with heart failure (principal); J96.20 Acute and chronic respiratory failure, unspecified whether with hypoxia or hypercapnia; E44.0 Moderate protein-calorie malnutrition; Z68.1 Body mass index [BMI] 19.9 or less, adult; I50.43 Acute on chronic combined systolic (congestive) and diastolic (congestive) heart failure; F31.9 Bipolar disorder, unspecified; Z88.8 Allergy status to other drugs, medicaments and biological substances; D50.9 Iron deficiency anemia, unspecified; D53.9 Nutritional anemia, unspecified; E03.9 Hypothyroidism, unspecified; F17.210 Nicotine dependence, cigarettes, uncomplicated; F41.9 Anxiety disorder, unspecified; G89.29 Other chronic pain; I25.2 Old myocardial infarction; I27.20 Pulmonary hypertension, unspecified; I34.0 Nonrheumatic mitral (valve) insufficiency; I42.9 Cardiomyopathy, unspecified; Z82.49 Family history of ischemic heart disease and other diseases of the circulatory system; Z85.3 Personal history of malignant neoplasm of breast; Z86.73 Personal history of transient ischemic attack (TIA), and cerebral infarction without residual deficits; Z90.13 Acquired absence of bilateral breasts and nipples; Z90.710 Acquired absence of both cervix and uterus; Z96.659 Presence of unspecified artificial knee joint; I44.7 Left bundle-branch block, unspecified
CPT/HCPCS: 36415; 80053; 80061; 80307; 81003; 83036; 83735; 84439; 84443; 84484; 84702; 85025; 93005; 93306; 99285; Q0162; J3475

== ENCOUNTER 2018-05-13 15:15 | Inpatient (IN) | payer BC, MEDICARE ==
[~2018-05-13] VITALS: Ht 175.3 cm; Wt 60.4 kg
[~2018-05-13 15:15] MED LIST changes: +ACET325T14 PO; +ASPI-515 PO; +ATOR-2 PO; -CLON-364 PO; +CLON0.5T11 PO; +DULO30CA2 PO; +ERGO500017 PO; +FERR-51 PO; +LAMO100T PO; +LEVO75TA PO; +LEVO75TA5 PO; +LISI5TAB7 PO; +MAGN64TA7 PO; +MIRT15TA4 PO; +OLAN5TAB9 PO; +POTA20TA14 PO; +POTA20TA6 PO; +ROPI0.5T PO; +TOPI25TA32 PO
[2018-05-13 16:57] LABS: ALBUMIN 2.9 g/dL (3.4-5.0); ANION GAP 10 mmol/L (5-15); CALCIUM 8.4 mg/dL (8.5-10.1); CHLORIDE 107 mmol/L (98-107); CREATININE 0.78 mg/dL (0.55-1.02)
[2018-05-13 17:00] LABS: TROPONIN I 0.093 ng/mL (0.000-0.045)
[2018-05-13 17:02] LABS: MEAN CORPUSCULAR HGB CONC 32.2 g/dL (32.4-35.8); MEAN CORPUSCULAR VOLUME 86.8 fL (80-100); MEAN PLATELET VOLUME 7.4 fL (7.4-10.4); PLATELET COUNT 438 x10^3/uL (130-400); RED BLOOD COUNT 3.36 x10^6/uL (3.82-5.3); RED CELL DISTRIBUTION WIDTH 22.9 % (9.6-15.2)
[2018-05-13 17:25] LABS: BASOPHILS # (AUTO) 0.01 x10^3/uL (0-0.1); BASOPHILS % (AUTO) 0 % (0-1); EOSINOPHILS # (AUTO) 0.09 x10^3/uL (0-0.4); EOSINOPHILS % (AUTO) 1 % (1-7); LYMPHOCYTES # (AUTO) 0.57 x10^3/uL (1-3.4); LYMPHOCYTES % (AUTO) 9 % (22-44); MD MORPH REVIEW ONLY; MONOCYTES # (AUTO) 0.53 x10^3/uL (0.2-0.8); MONOCYTES % (AUTO) 8 % (2-9); NEUTROPHILS % (AUTO) 82 % (42-75)
[2018-05-13 17:26] LABS: ANISOCYTOSIS 1+; HYPOCHROMIA 1+; MICROCYTOSIS 1+; POLYCHROMASIA 1+
[2018-05-13 17:27] LABS: <PLATELET ESTIMATE> ADEQUATE; <PLT MORPHOLOGY> NORMAL PLT MORPH
[2018-05-13] MEDS ORDERED: morphine SULFATE 10 MG/ML, 1ML IVPush PRN (18:00)
[2018-05-13] MEDS ORDERED: ACETAMINOPHEN 325 MG TABLET PO PRN (18:00)
[2018-05-13] MEDS ORDERED: ONDANSETRON 2MG/ML, 2ML IVPush PRN (18:00)
[2018-05-13] MEDS ORDERED: DOXYCYCLINE 100MG TABLET PO ONE (18:30)
[2018-05-13] MEDS: CEFTRIAXONE 2 GM in SODIUM CHLORIDE 0.9% 50 ML IV SCH (18:37)
[2018-05-13] MEDS: HYDROcodone/APAP 5/325 TABLET PO PRN (18:38)
[2018-05-13] MEDS: SODIUM CHLORIDE 0.9% 1,000 ML IV SCH (18:38)
[2018-05-13] MEDS ORDERED: POTASSIUM CHLORIDE 20 MEQ TAB.ER.PRT PO ONE (19:00)
[2018-05-13 20:21] VITALS: BP 153/91
[2018-05-13] MEDS: OLANZAPINE 2.5 MG TABLET PO SCH (21:00)
[2018-05-13] MEDS ORDERED: NITROGLYCERIN 0.4 MG BOTTLE (25 TABS) SL ONE (21:25)
[2018-05-13 21:48] VITALS: BP 165/99
[2018-05-13] MEDS ORDERED: NITROGLYCERIN 0.4 MG BOTTLE (25 TABS) SL PRN (22:00)
[2018-05-13] MEDS ORDERED: NITROGLYCERIN SINGLE TAB 0.4 MG SL PRN (22:00)
[2018-05-13 22:02] VITALS: BP 142/82
[2018-05-13 22:21] LABS: TROPONIN I 0.089 ng/mL (0.000-0.045)
[2018-05-13] MEDS ORDERED: BACLOFEN 10 MG TABLET PO PRN (22:30)
[2018-05-13] MEDS ORDERED: OLANZAPINE 5 MG TABLET ONE (23:16)
[2018-05-13] MEDS: ROPINIROLE 0.5MG TABLET PO SCH (23:19)
[2018-05-13] MEDS: MIRTAZAPINE 15 MG TABLET PO SCH (23:20)
[2018-05-13] MEDS: LAMOTRIGINE 25 MG TABLET PO SCH (23:20)
[2018-05-14] VITALS (7 sets, daily range): BP systolic 116–173; BP diastolic 75–142
[2018-05-14] MEDS: HYDROcodone/APAP 5/325 TABLET PO PRN ×2 (01:13→12:32)
[2018-05-14] MEDS: SODIUM CHLORIDE 0.9% 1,000 ML IV SCH (03:59)
[2018-05-14 05:15] LABS: MEAN CORPUSCULAR HEMOGLOBIN 27.8 pg (27.0-34.8); MEAN CORPUSCULAR HGB CONC 32.6 g/dL (32.4-35.8); MEAN CORPUSCULAR VOLUME 85.3 fL (80-100); MEAN PLATELET VOLUME 7.3 fL (7.4-10.4); PLATELET COUNT 335 x10^3/uL (130-400); RED BLOOD COUNT 2.91 x10^6/uL (3.82-5.3)
[2018-05-14 05:24] LABS: TROPONIN I 0.089 ng/mL (0.000-0.045)
[2018-05-14 05:28] LABS: ALANINE AMINOTRANSFERASE 17 U/L (12-78); ALBUMIN 2.3 g/dL (3.4-5.0); ANION GAP 6 mmol/L (5-15); CALCIUM 7.9 mg/dL (8.5-10.1); CHLORIDE 112 mmol/L (98-107)
[2018-05-14] MEDS: LEVOTHYROXINE 75 MCG TABLET PO SCH (05:32)
[2018-05-14 05:33] LABS: ALKALINE PHOSPHATASE 197 U/L (45-117); BILIRUBIN,TOTAL 0.5 mg/dL (0.2-1.0); CREATININE 0.69 mg/dL (0.55-1.02); TOTAL PROTEIN 5.4 g/dL (6.4-8.2)
[2018-05-14 05:40] LABS: BASOPHILS # (AUTO) 0.02 x10^3/uL (0-0.1); BASOPHILS % (AUTO) 0 % (0-1); EOSINOPHILS # (AUTO) 0.13 x10^3/uL (0-0.4); EOSINOPHILS % (AUTO) 3 % (1-7); LYMPHOCYTES # (AUTO) 0.87 x10^3/uL (1-3.4); LYMPHOCYTES % (AUTO) 18 % (22-44); MD SCAN; MONOCYTES # (AUTO) 0.62 x10^3/uL (0.2-0.8); MONOCYTES % (AUTO) 13 % (2-9); NEUTROPHILS # (AUTO) 3.28 x10^3/uL (1.8-6.8); NEUTROPHILS % (AUTO) 67 % (42-75)
[2018-05-14] MEDS ORDERED: ENALAPRILAT 1.25 MG/ML, 2ML IV PRN (08:00)
[2018-05-14] MEDS: DULOXETINE 30 MG CAPSULE.DR PO SCH (09:38)
[2018-05-14] MEDS: LAMOTRIGINE 25 MG TABLET PO SCH ×2 (09:38→21:16)
[2018-05-14] MEDS: POTASSIUM CHLORIDE 20 MEQ TAB.ER.PRT PO SCH ×2 (09:38→11:39)
[2018-05-14] MEDS ORDERED: METOPROLOL TARTRATE 25 MG TABLET PO SCH (13:02)
[2018-05-14] MEDS ORDERED: DIGOXIN 0.25 MG/ML, 2ML IVPush ONE (13:30)
[2018-05-14] MEDS: IBUPROFEN 200 MG TABLET PO SCH ×2 (17:08→23:02)
[2018-05-14] MEDS: CEFTRIAXONE 2 GM in SODIUM CHLORIDE 0.9% 50 ML IV SCH (18:40)
[2018-05-14] MEDS: ROPINIROLE 0.5MG TABLET PO SCH (21:16)
[2018-05-14] MEDS: OLANZAPINE 2.5 MG TABLET PO SCH (21:16)
[2018-05-14] MEDS: MIRTAZAPINE 15 MG TABLET PO SCH (21:16)
[2018-05-15 00:08] VITALS: BP 126/92
[2018-05-15] MEDS: HYDROcodone/APAP 5/325 TABLET PO PRN ×2 (00:13→11:18)
[2018-05-15 02:16] VITALS: BP 127/87
[2018-05-15] MEDS: IBUPROFEN 200 MG TABLET PO SCH ×2 (04:48→11:12)
[2018-05-15] MEDS: LEVOTHYROXINE 75 MCG TABLET PO SCH (04:50)
[2018-05-15 05:52] LABS: MEAN CORPUSCULAR HEMOGLOBIN 27.6 pg (27.0-34.8); MEAN CORPUSCULAR HGB CONC 31.9 g/dL (32.4-35.8); MEAN CORPUSCULAR VOLUME 86.6 fL (80-100); MEAN PLATELET VOLUME 7.2 fL (7.4-10.4); PLATELET COUNT 381 x10^3/uL (130-400); RED BLOOD COUNT 3.38 x10^6/uL (3.82-5.3); RED CELL DISTRIBUTION WIDTH 22.8 % (9.6-15.2)
[2018-05-15 05:55] LABS: CHLORIDE 112 mmol/L (98-107)
[2018-05-15] MEDS ORDERED: METOPROLOL SUCCINATE 25 MG TAB.ER.24H PO SCH (06:00)
[2018-05-15 06:01] LABS: ALANINE AMINOTRANSFERASE 24 U/L (12-78); ALBUMIN 2.4 g/dL (3.4-5.0); ALKALINE PHOSPHATASE 245 U/L (45-117); ANION GAP 6 mmol/L (5-15); BILIRUBIN,TOTAL 0.6 mg/dL (0.2-1.0); CALCIUM 8.4 mg/dL (8.5-10.1); CREATININE 0.77 mg/dL (0.55-1.02); TOTAL PROTEIN 5.8 g/dL (6.4-8.2)
[2018-05-15 06:12] LABS: BASOPHILS # (AUTO) 0.05 x10^3/uL (0-0.1); BASOPHILS % (AUTO) 1 % (0-1); EOSINOPHILS # (AUTO) 0.14 x10^3/uL (0-0.4); EOSINOPHILS % (AUTO) 2 % (1-7); LYMPHOCYTES # (AUTO) 1.23 x10^3/uL (1-3.4); LYMPHOCYTES % (AUTO) 20 % (22-44); MD SCAN; MONOCYTES % (AUTO) 12 % (2-9); NEUTROPHILS # (AUTO) 3.94 x10^3/uL (1.8-6.8); NEUTROPHILS % (AUTO) 65 % (42-75)
[2018-05-15 06:32] VITALS: BP 134/78
[2018-05-15] MEDS: LAMOTRIGINE 25 MG TABLET PO SCH (08:18)
[2018-05-15] MEDS: DULOXETINE 30 MG CAPSULE.DR PO SCH (08:18)
[2018-05-15 08:54] VITALS: BP 124/87
[2018-05-15] MEDS ORDERED: OXYcodone/APAP 5/325MG TABLET PO PRN (12:30)
== END 2018-05-15 16:20 | disposition home or self-care (01) | DRG 314 ==
LOC: ED 16:33 → EDIP 16:34 → ED 17:08 → SUATTDRO 17:22 → 5SO 17:53
PROVIDERS: ADMIT Hospitalist; ATTEND Internal Medicine
PROC: 4B02XTZ Measurement of Cardiac Defibrillator, External Approach (ICD-10-PCS; principal; 2018-05-14)
DX: I31.3 Pericardial effusion (noninflammatory) (principal); J18.9 Pneumonia, unspecified organism; I42.0 Dilated cardiomyopathy; I13.0 Hypertensive heart and chronic kidney disease with heart failure and stage 1 through stage 4 chronic kidney disease, or unspecified chronic kidney disease; J96.10 Chronic respiratory failure, unspecified whether with hypoxia or hypercapnia; E03.9 Hypothyroidism, unspecified; F31.9 Bipolar disorder, unspecified; I25.10 Atherosclerotic heart disease of native coronary artery without angina pectoris; I27.20 Pulmonary hypertension, unspecified; Z53.21 Procedure and treatment not carried out due to patient leaving prior to being seen by health care provider; R79.1 Abnormal coagulation profile; F19.11 Other psychoactive substance abuse, in remission; Z96.651 Presence of right artificial knee joint; N18.3 Chronic kidney disease, stage 3 (moderate); I34.0 Nonrheumatic mitral (valve) insufficiency; I50.89 Other heart failure; I50.9 Heart failure, unspecified; Z98.891 History of uterine scar from previous surgery; Z90.49 Acquired absence of other specified parts of digestive tract; I25.2 Old myocardial infarction; Z90.13 Acquired absence of bilateral breasts and nipples; Z72.0 Tobacco use; Z82.49 Family history of ischemic heart disease and other diseases of the circulatory system; Z85.3 Personal history of malignant neoplasm of breast; Z86.73 Personal history of transient ischemic attack (TIA), and cerebral infarction without residual deficits; Z95.810 Presence of automatic (implantable) cardiac defibrillator; Z98.51 Tubal ligation status
CPT/HCPCS: 36415; 71045; 71046; 80048; 80053; 82040; 83735; 83880; 84100; 84484; 85025; 93005; 93306; 99285; J0696; J1160; J7030

== ENCOUNTER 2018-05-16 18:44 | Inpatient (IN) | payer BC, MEDICARE ==
[~2018-05-16] VITALS: Ht 175.3 cm; Wt 62.8 kg
[2018-05-16] MEDS ORDERED: SODIUM CHLORIDE FLUSH 10ML SYR IVF ONE (19:00)
[2018-05-16 19:07] LABS: MEAN CORPUSCULAR HEMOGLOBIN 27.7 pg (27.0-34.8); MEAN CORPUSCULAR HGB CONC 32.1 g/dL (32.4-35.8); MEAN CORPUSCULAR VOLUME 86.2 fL (80-100); MEAN PLATELET VOLUME 7.4 fL (7.4-10.4); PLATELET COUNT 414 x10^3/uL (130-400); RED BLOOD COUNT 3.62 x10^6/uL (3.82-5.3); RED CELL DISTRIBUTION WIDTH 22.8 % (9.6-15.2)
[2018-05-16 19:18] LABS: ALANINE AMINOTRANSFERASE 23 U/L (12-78); ALBUMIN 2.7 g/dL (3.4-5.0); ANION GAP 6 mmol/L (5-15); CALCIUM 8.1 mg/dL (8.5-10.1); CHLORIDE 110 mmol/L (98-107)
[2018-05-16 19:20] LABS: ALKALINE PHOSPHATASE 251 U/L (45-117); BILIRUBIN,TOTAL 0.4 mg/dL (0.2-1.0); CREATININE 0.78 mg/dL (0.55-1.02); TOTAL PROTEIN 6.4 g/dL (6.4-8.2)
[2018-05-16 19:31] LABS: BASOPHILS # (AUTO) 0.02 x10^3/uL (0-0.1); BASOPHILS % (AUTO) 0 % (0-1); EOSINOPHILS # (AUTO) 0.08 x10^3/uL (0-0.4); EOSINOPHILS % (AUTO) 1 % (1-7); LYMPHOCYTES # (AUTO) 1.11 x10^3/uL (1-3.4); LYMPHOCYTES % (AUTO) 11 % (22-44); MD MORPH REVIEW ONLY; MONOCYTES # (AUTO) 0.89 x10^3/uL (0.2-0.8); MONOCYTES % (AUTO) 8 % (2-9); NEUTROPHILS # (AUTO) 8.49 x10^3/uL (1.8-6.8); NEUTROPHILS % (AUTO) 80 % (42-75)
[2018-05-16 19:32] LABS: <PLATELET ESTIMATE> INCREASED; <PLT MORPHOLOGY> NORMAL PLT MORPH; ANISOCYTOSIS 1+; OVALOCYTES 1+; POLYCHROMASIA 1+
[2018-05-16 19:33] LABS: SPHEROCYTES 1+
[2018-05-16] MEDS ORDERED: ONDANSETRON 2MG/ML, 2ML ONE (19:56)
[2018-05-16] MEDS ORDERED: MORPHINE SULFATE 4 MG/ML, 1ML ONE ×2 (19:56→21:44)
[2018-05-16] MEDS ORDERED: ONDANSETRON 2MG/ML, 2ML IVPush ONE (20:00)
[2018-05-16] MEDS: MORPHINE SULFATE 4 MG/ML, 1ML IVPush PRN ×2 (20:33→21:48)
[2018-05-16] MEDS ORDERED: FUROSEMIDE 20 MG/2 ML IV ONE (21:00)
[2018-05-16] MEDS ORDERED: FUROSEMIDE 40 MG/4 ML ONE (21:18)
[2018-05-16] MEDS ORDERED: POLYETHYLENE GLYCOL 17 GM PACKET PO PRN (22:00)
[2018-05-16] MEDS ORDERED: CARVEDILOL 3.125 MG TABLET PO SCH (22:00)
[2018-05-16] MEDS ORDERED: BISACODYL 10 MG SUPP PR PRN (22:00)
[2018-05-16] MEDS ORDERED: ACETAMINOPHEN 325 MG TABLET PO PRN (22:00)
[2018-05-16 22:52] VITALS: BP 134/75
[2018-05-17] VITALS (9 sets, daily range): BP systolic 94–156; BP diastolic 66–95
[2018-05-17] MEDS: SODIUM CHLORIDE FLUSH 10ML SYR IVF SCH ×3 (00:31→21:00)
[2018-05-17] MEDS: TOPIRAMATE 25 MG TABLET PO SCH ×3 (00:34→22:11)
[2018-05-17] MEDS: OLANZAPINE 2.5 MG TABLET PO SCH ×2 (00:34→22:14)
[2018-05-17] MEDS: LAMOTRIGINE 25 MG TABLET PO SCH ×3 (00:34→22:12)
[2018-05-17] MEDS: ROPINIROLE 0.5MG TABLET PO SCH ×2 (00:34→22:13)
[2018-05-17] MEDS: BACLOFEN 10 MG TABLET PO PRN ×3 (00:35→23:13)
[2018-05-17] MEDS: MIRTAZAPINE 15 MG TABLET PO SCH ×2 (00:36→22:14)
[2018-05-17] MEDS: HEPARIN 5,000 UNITS/ML, 1ML SQ SCH ×4 (00:38→23:14)
[2018-05-17] MEDS: LEVOTHYROXINE 75 MCG TABLET PO SCH (04:58)
[2018-05-17 05:19] LABS: BASOPHILS # (AUTO) 0.05 x10^3/uL (0-0.1); BASOPHILS % (AUTO) 1 % (0-1); EOSINOPHILS % (AUTO) 1 % (1-7); LYMPHOCYTES # (AUTO) 1.16 x10^3/uL (1-3.4); LYMPHOCYTES % (AUTO) 13 % (22-44); MD NO; MEAN CORPUSCULAR HGB CONC 32.5 g/dL (32.4-35.8); MEAN PLATELET VOLUME 7.4 fL (7.4-10.4); MONOCYTES # (AUTO) 1.14 x10^3/uL (0.2-0.8); MONOCYTES % (AUTO) 13 % (2-9); NEUTROPHILS # (AUTO) 6.54 x10^3/uL (1.8-6.8); NEUTROPHILS % (AUTO) 73 % (42-75); PLATELET COUNT 319 x10^3/uL (130-400); RED CELL DISTRIBUTION WIDTH 21.8 % (9.6-15.2)
[2018-05-17 05:24] LABS: ALBUMIN 2.4 g/dL (3.4-5.0); ANION GAP 5 mmol/L (5-15); CALCIUM 7.9 mg/dL (8.5-10.1); CHLORIDE 108 mmol/L (98-107)
[2018-05-17 05:29] LABS: ALANINE AMINOTRANSFERASE 19 U/L (12-78); ALKALINE PHOSPHATASE 210 U/L (45-117); BILIRUBIN,TOTAL 0.5 mg/dL (0.2-1.0); CREATININE 0.63 mg/dL (0.55-1.02); TOTAL PROTEIN 5.8 g/dL (6.4-8.2)
[2018-05-17] MEDS ORDERED: TOPI25TA8 PO (07:28)
[2018-05-17] MEDS ORDERED: CARV3.1212 PO (07:28)
[2018-05-17] MEDS ORDERED: LAMO100T63 PO (07:28)
[2018-05-17] MEDS ORDERED: FUROSEMIDE 20 MG/2 ML IV SCH (07:30)
[2018-05-17] MEDS: OXYcodone/APAP 5/325MG TABLET PO PRN ×2 (09:35→23:14)
[2018-05-17] MEDS: CARVEDILOL 3.125 MG TABLET PO SCH ×3 (09:35→22:13)
[2018-05-17] MEDS: LISINOPRIL 5 MG TABLET PO SCH (09:36)
[2018-05-17] MEDS: DULOXETINE 30 MG CAPSULE.DR PO SCH (09:36)
[2018-05-17] MEDS: POTASSIUM CHLORIDE 20 MEQ TAB.ER.PRT PO SCH (09:36)
[2018-05-17] MEDS: SENNA/DOCUSATE TABLET PO SCH (09:37)
[2018-05-17] MEDS ORDERED: FUROSEMIDE 40 MG TABLET PO SCH (12:00)
[2018-05-17] MEDS ORDERED: SPIRONOLACTONE 25 MG TABLET PO SCH (12:00)
[2018-05-17] MEDS: IBUPROFEN 200 MG TABLET PO PRN ×2 (12:13→18:53)
[2018-05-17] MEDS: NICOTINE 21 MG/24 HR PATCH.TD24 TD SCH (13:42)
[2018-05-17] MEDS ORDERED: SODIUM CHLORIDE 0.9%, 500ML IVBOLUS PRN (17:30)
[2018-05-17] MEDS: MENTHOL 5% TP PRN (20:04)
[2018-05-17] MEDS ORDERED: NITROGLYCERIN 0.4 MG BOTTLE (25 TABS) SL PRN (22:00)
[2018-05-17] MEDS ORDERED: CALCIUM CARBONATE 500 MG TAB.CHEW ONE (22:08)
[2018-05-17] MEDS: CALCIUM CARBONATE 500 MG TAB.CHEW PO PRN (22:14)
[2018-05-17] MEDS: TROLAMINE SALICYLATE 10% TP PRN (22:15)
[2018-05-18 02:09] VITALS: BP 114/81
[2018-05-18] MEDS: ONDANSETRON 2MG/ML, 2ML IVPush PRN ×3 (02:24→22:09)
[2018-05-18] MEDS: IBUPROFEN 200 MG TABLET PO PRN ×3 (04:19→20:03)
[2018-05-18 05:17] LABS: ALANINE AMINOTRANSFERASE 28 U/L (12-78); ALBUMIN 2.6 g/dL (3.4-5.0); ANION GAP 7 mmol/L (5-15); CALCIUM 8.6 mg/dL (8.5-10.1); CHLORIDE 106 mmol/L (98-107)
[2018-05-18 05:20] LABS: ALKALINE PHOSPHATASE 263 U/L (45-117); BASOPHILS # (AUTO) 0.03 x10^3/uL (0-0.1); BASOPHILS % (AUTO) 0 % (0-1); BILIRUBIN,TOTAL 0.7 mg/dL (0.2-1.0); CREATININE 0.96 mg/dL (0.55-1.02); EOSINOPHILS # (AUTO) 0.07 x10^3/uL (0-0.4); EOSINOPHILS % (AUTO) 1 % (1-7); LYMPHOCYTES # (AUTO) 1.09 x10^3/uL (1-3.4); LYMPHOCYTES % (AUTO) 13 % (22-44); MD NO; MEAN CORPUSCULAR HEMOGLOBIN 27.3 pg (27.0-34.8); MEAN CORPUSCULAR HGB CONC 31.8 g/dL (32.4-35.8); MEAN CORPUSCULAR VOLUME 86.1 fL (80-100); MONOCYTES # (AUTO) 0.85 x10^3/uL (0.2-0.8); MONOCYTES % (AUTO) 10 % (2-9); NEUTROPHILS # (AUTO) 6.73 x10^3/uL (1.8-6.8); NEUTROPHILS % (AUTO) 77 % (42-75); PLATELET COUNT 369 x10^3/uL (130-400); RED CELL DISTRIBUTION WIDTH 21.9 % (9.6-15.2); TOTAL PROTEIN 6.3 g/dL (6.4-8.2)
[2018-05-18] MEDS: LEVOTHYROXINE 75 MCG TABLET PO SCH (06:27)
[2018-05-18] MEDS: FUROSEMIDE MC SCH ×2 (07:00→15:00)
[2018-05-18] MEDS: SPIRONOLACTONE MC SCH ×2 (07:00→15:00)
[2018-05-18 07:26] VITALS: BP 125/95
[2018-05-18] MEDS: POTASSIUM CHLORIDE 20 MEQ TAB.ER.PRT PO SCH (08:35)
[2018-05-18] MEDS: DULOXETINE 30 MG CAPSULE.DR PO SCH (08:35)
[2018-05-18] MEDS: LAMOTRIGINE 25 MG TABLET PO SCH ×2 (08:35→20:03)
[2018-05-18] MEDS: LISINOPRIL 5 MG TABLET PO SCH (08:35)
[2018-05-18] MEDS: TOPIRAMATE 25 MG TABLET PO SCH ×2 (08:35→20:04)
[2018-05-18] MEDS: CARVEDILOL 3.125 MG TABLET PO SCH ×3 (08:36→20:03)
[2018-05-18] MEDS: SENNA/DOCUSATE TABLET PO SCH (08:36)
[2018-05-18] MEDS: HEPARIN 5,000 UNITS/ML, 1ML SQ SCH ×3 (08:37→23:31)
[2018-05-18] MEDS: SODIUM CHLORIDE FLUSH 10ML SYR IVF SCH ×2 (08:37→20:02)
[2018-05-18] MEDS: NICOTINE 21 MG/24 HR PATCH.TD24 TD SCH (08:38)
[2018-05-18] MEDS ORDERED: FUROSEMIDE 40 MG TABLET PO SCH (09:00)
[2018-05-18] MEDS ORDERED: SPIRONOLACTONE 25 MG TABLET PO SCH ×2 (09:00→19:22)
[2018-05-18] MEDS: OXYcodone/APAP 5/325MG TABLET PO PRN ×2 (09:28→17:58)
[2018-05-18] MEDS: MENTHOL 5% TP PRN ×2 (09:29→18:00)
[2018-05-18] MEDS: CALCIUM CARBONATE 500 MG TAB.CHEW PO PRN ×3 (12:43→23:31)
[2018-05-18 12:47] VITALS: BP 112/75
[2018-05-18] MEDS: FUROSEMIDE 20 MG TABLET PO SCH (12:52)
[2018-05-18 13:57] VITALS: BP 95/62
[2018-05-18 16:02] VITALS: BP 103/68
[2018-05-18 19:30] VITALS: BP 111/80
[2018-05-18] MEDS: MIRTAZAPINE 15 MG TABLET PO SCH (20:03)
[2018-05-18] MEDS: ROPINIROLE 0.5MG TABLET PO SCH (20:03)
[2018-05-18] MEDS: BACLOFEN 10 MG TABLET PO PRN (20:04)
[2018-05-18] MEDS: OLANZAPINE 2.5 MG TABLET PO SCH (20:04)
[2018-05-18] MEDS: TROLAMINE SALICYLATE 10% TP PRN (20:05)
[2018-05-19 03:18] VITALS: BP 142/86
[2018-05-19] MEDS: IBUPROFEN 200 MG TABLET PO PRN ×2 (03:29→11:35)
[2018-05-19] MEDS: CALCIUM CARBONATE 500 MG TAB.CHEW PO PRN (03:33)
[2018-05-19] MEDS: LEVOTHYROXINE 75 MCG TABLET PO SCH (06:09)
[2018-05-19 06:31] VITALS: BP 123/83
[2018-05-19] MEDS: OXYcodone/APAP 5/325MG TABLET PO PRN (06:39)
[2018-05-19 08:04] VITALS: BP 123/84
[2018-05-19] MEDS: HEPARIN 5,000 UNITS/ML, 1ML SQ SCH (08:58)
[2018-05-19] MEDS: POTASSIUM CHLORIDE 20 MEQ TAB.ER.PRT PO SCH (08:58)
[2018-05-19] MEDS: LISINOPRIL 5 MG TABLET PO SCH (08:58)
[2018-05-19] MEDS: CARVEDILOL 3.125 MG TABLET PO SCH (08:58)
[2018-05-19] MEDS: SENNA/DOCUSATE TABLET PO SCH (08:58)
[2018-05-19] MEDS: LAMOTRIGINE 25 MG TABLET PO SCH ×2 (08:58→09:00)
[2018-05-19] MEDS: DULOXETINE 30 MG CAPSULE.DR PO SCH (08:58)
[2018-05-19] MEDS: TOPIRAMATE 25 MG TABLET PO SCH ×2 (08:59→09:00)
[2018-05-19] MEDS: FUROSEMIDE 20 MG TABLET PO SCH (08:59)
[2018-05-19] MEDS: NICOTINE 21 MG/24 HR PATCH.TD24 TD SCH (08:59)
[2018-05-19] MEDS: TROLAMINE SALICYLATE 10% TP PRN (09:00)
[2018-05-19] MEDS: SODIUM CHLORIDE FLUSH 10ML SYR IVF SCH (09:00)
[2018-05-19] MEDS ORDERED: SPIR25TA PO (12:58)
[2018-05-19] MEDS ORDERED: NICO-487 TD (12:58)
[2018-05-19] MEDS ORDERED: FURO20TA3 PO (12:58)
[2018-05-19 14:33] VITALS: BP 104/71
== END 2018-05-19 15:06 | disposition home or self-care (01) | DRG 314 ==
LOC: ED 21:19 → EDIP 21:47 → 5SO 23:26
PROVIDERS: ADMIT Family Medicine; ATTEND Family Medicine
PROC: 4B02XTZ Measurement of Cardiac Defibrillator, External Approach (ICD-10-PCS; principal; 2018-05-18)
DX: I24.1 Dressler's syndrome (principal); I50.23 Acute on chronic systolic (congestive) heart failure; E44.0 Moderate protein-calorie malnutrition; I13.0 Hypertensive heart and chronic kidney disease with heart failure and stage 1 through stage 4 chronic kidney disease, or unspecified chronic kidney disease; I31.3 Pericardial effusion (noninflammatory); J96.10 Chronic respiratory failure, unspecified whether with hypoxia or hypercapnia; D64.9 Anemia, unspecified; D69.6 Thrombocytopenia, unspecified; E03.9 Hypothyroidism, unspecified; F15.90 Other stimulant use, unspecified, uncomplicated; F31.9 Bipolar disorder, unspecified; F41.9 Anxiety disorder, unspecified; I25.10 Atherosclerotic heart disease of native coronary artery without angina pectoris; I27.20 Pulmonary hypertension, unspecified; I34.0 Nonrheumatic mitral (valve) insufficiency; N18.3 Chronic kidney disease, stage 3 (moderate); Z96.651 Presence of right artificial knee joint; Z72.0 Tobacco use; Z82.49 Family history of ischemic heart disease and other diseases of the circulatory system; Z82.5 Family history of asthma and other chronic lower respiratory diseases; Z68.20 Body mass index [BMI] 20.0-20.9, adult; Z83.3 Family history of diabetes mellitus; I25.2 Old myocardial infarction; Z85.3 Personal history of malignant neoplasm of breast; Z86.73 Personal history of transient ischemic attack (TIA), and cerebral infarction without residual deficits; Z90.13 Acquired absence of bilateral breasts and nipples; Z92.21 Personal history of antineoplastic chemotherapy; Z92.3 Personal history of irradiation; Z95.810 Presence of automatic (implantable) cardiac defibrillator; Z90.49 Acquired absence of other specified parts of digestive tract; Z88.1 Allergy status to other antibiotic agents
CPT/HCPCS: 36415; 71045; 76830; 80053; 83735; 83880; 84100; 84484; 85025; 86304; 93005; 93308; 96374; 96375; 96376; J1644; J2405; J1940

== ENCOUNTER → 2018-08-05 | Outpatient (CLI) | payer BC, MEDICARE ==
[~2018-08-05] MED LIST changes: +FURO20TA3 PO; +LAMO100T63 PO; -MIRT45TA4 PO; +MIRT45TA61 PO; +NICO-487 TD; +SPIR25TA PO; +TOPI25TA8 PO
== END | disposition home or self-care (01) ==
LOC: CFH 10:30
PROVIDERS: ATTEND Internal Medicine Cardiovascular Disease
DX: I34.0 Nonrheumatic mitral (valve) insufficiency (principal); I31.3 Pericardial effusion (noninflammatory); I11.0 Hypertensive heart disease with heart failure; I50.9 Heart failure, unspecified; I42.9 Cardiomyopathy, unspecified; Z85.3 Personal history of malignant neoplasm of breast
CPT/HCPCS: 93306

== ENCOUNTER 2018-08-27 11:58 | Day surgery (SDC) | payer BC, MEDICARE ==
[~2018-08-27] VITALS: Ht 175.3 cm; Wt 55.5 kg
[2018-08-27 12:29] VITALS: BP 106/69
[2018-08-27] MEDS ORDERED: SODIUM CHLORIDE 0.9% 1,000 ML IV ONE (12:30)
[2018-08-27] MEDS ORDERED: [UNRECOGNIZED DRUG - CODE] PO (12:42)
[2018-08-27] MEDS ORDERED: ONDA8TAB9 PO (12:42)
[2018-08-27] MEDS ORDERED: DULO60CA7 PO (12:42)
[2018-08-27] MEDS ORDERED: MIRT45TA6 PO (12:42)
[2018-08-27] MEDS ORDERED: SUMA100T3 PO (12:42)
[2018-08-27] MEDS ORDERED: CLON0.5T11 PO (12:42)
[2018-08-27] MEDS ORDERED: FURO40TA6 PO (12:42)
[2018-08-27] MEDS ORDERED: LEVO75TA5 PO (12:42)
[2018-08-27] MEDS ORDERED: ONDANSETRON 2MG/ML, 2ML ONE (12:44)
== END 2018-08-27 14:53 | disposition home or self-care (01) ==
LOC: CACL 11:58
PROVIDERS: ATTEND Internal Medicine Cardiovascular Disease
DX: I34.0 Nonrheumatic mitral (valve) insufficiency (principal); I25.5 Ischemic cardiomyopathy; I11.9 Hypertensive heart disease without heart failure; Z88.1 Allergy status to other antibiotic agents; Z79.899 Other long term (current) drug therapy; Z95.810 Presence of automatic (implantable) cardiac defibrillator
CPT/HCPCS: 93312; 93320; 93325; J2405

== ENCOUNTER 2019-06-15 16:34 | Inpatient (IN) | payer BC, MEDICARE ==
[~2019-06-15] VITALS: Ht 175.3 cm; Wt 60.8 kg
[~2019-06-15 16:34] MED LIST changes: -ALPR-475 PO; +ALPR0.5T7 PO; +MIRT-34 PO; -MIRT15TA4 PO; +MIRT45TA57 PO; +ONDA8TAB9 PO; +[UNRECOGNIZED DRUG - CODE] PO
--- NOTE | 2019-06-15 17:19 | NUR ---
REPORT RECEIVED FROM MIRI BELLA.
[2019-06-15] MEDS ORDERED: LEVO75TA5 PO (17:20)
[2019-06-15] MEDS ORDERED: ROPI2TAB4 PO ×2 (17:20→17:23)
[2019-06-15] MEDS ORDERED: LAMO100T5 PO (17:20)
[2019-06-15] MEDS ORDERED: MIRT30TA97 PO (17:21)
[2019-06-15] MEDS ORDERED: QUET100T4 PO (17:21)
[2019-06-15] MEDS ORDERED: OLAN5TAB9 PO (17:22)
[2019-06-15] MEDS ORDERED: SERT100T32 PO (17:22)
[2019-06-15] MEDS ORDERED: BUSP30TA PO (17:23)
[2019-06-15] MEDS ORDERED: ONDA4TAB7 PO (17:23)
[2019-06-15] MEDS ORDERED: TOPI100T8 PO (17:24)
[2019-06-15] MEDS ORDERED: ONDA4TAB13 SL (17:24)
[2019-06-15 17:25] LABS: FREE T4 (FREE THYROXINE) 0.65 ng/dL (0.76-1.46)
[2019-06-15] MEDS ORDERED: LISI-170 PO (17:25)
[2019-06-15] MEDS ORDERED: ZOLP12.54 PO (17:25)
[2019-06-15] MEDS ORDERED: CARV3.122 PO (17:26)
[2019-06-15] MEDS ORDERED: SODIUM CHLORIDE 0.9% 1,000 ML IV SCH (17:30)
[2019-06-15] MEDS ORDERED: ENOXAPARIN 40 MG/0.4 ML SQ SCH (17:30)
[2019-06-15] MEDS ORDERED: FLUTICASON (17:42)
[2019-06-15] MEDS ORDERED: TRAM50TA2 PO (17:43)
[2019-06-15] MEDS ORDERED: DICL1KIT14 TP (17:43)
[2019-06-15] MEDS ORDERED: ALBU18HF INH (17:44)
[2019-06-15] MEDS ORDERED: BACL-19 PO (17:44)
--- NOTE | 2019-06-15 17:51 | NUR ---
report given to jose alberto cadena. all questions answered.
[2019-06-15] MEDS ORDERED: PLEASE ENTER ALLERGIES MC SCH (18:00)
[2019-06-15 18:05] VITALS: BP 110/62
[2019-06-15 20:15] VITALS: BP 110/62
[2019-06-15] MEDS: LAMOTRIGINE 100 MG TABLET PO SCH (21:16)
[2019-06-15] MEDS: ACETAMINOPHEN 325 MG TABLET PO PRN (23:48)
[2019-06-16 00:44] VITALS: BP 112/72
[2019-06-16] MEDS ORDERED: ONDANSETRON 2MG/ML, 2ML ONE (01:50)
[2019-06-16] MEDS ORDERED: ONDANSETRON 2MG/ML, 2ML IVPush PRN (02:00)
[2019-06-16 06:19] LABS: BASOPHILS # (AUTO) 0.03 x10^3/uL (0-0.1); BASOPHILS % (AUTO) 0 % (0-1); EOSINOPHILS # (AUTO) 0.14 x10^3/uL (0-0.4); EOSINOPHILS % (AUTO) 2 % (1-7); LYMPHOCYTES % (AUTO) 11 % (22-44); MD NO; MEAN CORPUSCULAR HEMOGLOBIN 30.4 pg (27.0-34.8); MEAN CORPUSCULAR VOLUME 92.3 fL (80-100); MEAN PLATELET VOLUME 7.7 fL (7.4-10.4); MONOCYTES # (AUTO) 0.37 x10^3/uL (0.2-0.8); MONOCYTES % (AUTO) 5 % (2-9); NEUTROPHILS # (AUTO) 6.81 x10^3/uL (1.8-6.8); NEUTROPHILS % (AUTO) 83 % (42-75); PLATELET COUNT 189 x10^3/uL (130-400); RED BLOOD COUNT 4.13 x10^6/uL (3.82-5.3); RED CELL DISTRIBUTION WIDTH 15.7 % (9.6-15.2)
[2019-06-16 06:33] LABS: ANION GAP 8 mmol/L (5-15); CALCIUM 8.5 mg/dL (8.5-10.1); CHLORIDE 107 mmol/L (98-107)
[2019-06-16 06:36] LABS: ALANINE AMINOTRANSFERASE 28 U/L (12-78); ALKALINE PHOSPHATASE 129 U/L (45-117); BILIRUBIN,TOTAL 0.4 mg/dL (0.2-1.0); TOTAL PROTEIN 5.8 g/dL (6.4-8.2)
[2019-06-16 07:26] VITALS: BP 108/66
[2019-06-16] MEDS ORDERED: LEVOTHYROXINE 75 MCG TABLET ONE (07:45)
[2019-06-16] MEDS: LEVOTHYROXINE 75 MCG TABLET PO SCH (07:55)
[2019-06-16] MEDS ORDERED: LEVOTHYROXINE 75 MCG TABLET PO SCH (09:00)
[2019-06-16] MEDS: ALBUTEROL HFA 90 MCG/SPRAY INH SCH (09:00)
[2019-06-16] MEDS: LAMOTRIGINE 100 MG TABLET PO SCH ×2 (10:45→22:02)
[2019-06-16] MEDS: ROPINIROLE 1MG TABLET PO SCH (10:45)
[2019-06-16] MEDS: SERTRALINE 100MG TABLET PO SCH (10:45)
[2019-06-16] MEDS: CARVEDILOL 3.125 MG TABLET PO SCH (10:45)
[2019-06-16 12:13] VITALS: BP 111/64
[2019-06-16] MEDS ORDERED: NICOTINE 21 MG/24 HR PATCH.TD24 ONE (15:00)
[2019-06-16 18:43] VITALS: BP 126/82
[2019-06-17] MEDS ORDERED: ZOLPIDEM 10MG TABLET PO ONE (00:30)
[2019-06-17 00:53] VITALS: BP 141/74
[2019-06-17] MEDS ORDERED: LORazepam 0.5MG TABLET PO ONE (02:30)
[2019-06-17] MEDS: ACETAMINOPHEN 325 MG TABLET PO PRN (05:36)
[2019-06-17 05:37] LABS: BASOPHILS # (AUTO) 0.02 x10^3/uL (0-0.1); BASOPHILS % (AUTO) 0 % (0-1); EOSINOPHILS # (AUTO) 0.09 x10^3/uL (0-0.4); EOSINOPHILS % (AUTO) 1 % (1-7); LYMPHOCYTES # (AUTO) 1.15 x10^3/uL (1-3.4); LYMPHOCYTES % (AUTO) 17 % (22-44); MD NO; MEAN CORPUSCULAR HEMOGLOBIN 30.7 pg (27.0-34.8); MEAN CORPUSCULAR HGB CONC 33.2 g/dL (32.4-35.8); MEAN CORPUSCULAR VOLUME 92.3 fL (80-100); MEAN PLATELET VOLUME 7.6 fL (7.4-10.4); MONOCYTES # (AUTO) 0.47 x10^3/uL (0.2-0.8); MONOCYTES % (AUTO) 7 % (2-9); NEUTROPHILS % (AUTO) 74 % (42-75); PLATELET COUNT 189 x10^3/uL (130-400); RED BLOOD COUNT 4.24 x10^6/uL (3.82-5.3); RED CELL DISTRIBUTION WIDTH 15.5 % (9.6-15.2)
[2019-06-17] MEDS: LEVOTHYROXINE 75 MCG TABLET PO SCH (05:37)
[2019-06-17 05:52] LABS: ALBUMIN 2.9 g/dL (3.4-5.0); ANION GAP 6 mmol/L (5-15); CALCIUM 8.7 mg/dL (8.5-10.1); CHLORIDE 110 mmol/L (98-107)
[2019-06-17 05:56] LABS: ALANINE AMINOTRANSFERASE 24 U/L (12-78); ALKALINE PHOSPHATASE 118 U/L (45-117); BILIRUBIN,TOTAL 0.4 mg/dL (0.2-1.0); CREATININE 0.82 mg/dL (0.55-1.02); TOTAL PROTEIN 5.7 g/dL (6.4-8.2)
[2019-06-17 06:31] VITALS: BP 129/89
[2019-06-17] MEDS: SERTRALINE 100MG TABLET PO SCH (08:12)
[2019-06-17] MEDS: CARVEDILOL 3.125 MG TABLET PO SCH (08:12)
[2019-06-17] MEDS: LAMOTRIGINE 100 MG TABLET PO SCH (08:13)
[2019-06-17] MEDS: ROPINIROLE 1MG TABLET PO SCH (08:13)
[2019-06-17] MEDS: ALBUTEROL HFA 90 MCG/SPRAY INH SCH (08:23)
[2019-06-17] MEDS ORDERED: NICOTINE 21 MG/24 HR PATCH.TD24 TD SCH (09:00)
[2019-06-17] MEDS ORDERED: POTASSIUM CHLORIDE 20 MEQ TAB.ER.PRT PO ONE (09:00)
== END 2019-06-17 10:53 | disposition home or self-care (01) | DRG 71 ==
LOC: ED 17:45 → MERGE 18:28 → EDIP 18:28 → 4EST 18:30 → DCLOUNGE 06-17 10:35
PROVIDERS: ADMIT Family Medicine; ATTEND Family Medicine
DX: G93.40 Encephalopathy, unspecified (principal); N17.9 Acute kidney failure, unspecified; E03.9 Hypothyroidism, unspecified; E86.0 Dehydration; E87.6 Hypokalemia; F31.9 Bipolar disorder, unspecified; I50.9 Heart failure, unspecified; J01.00 Acute maxillary sinusitis, unspecified; J40 Bronchitis, not specified as acute or chronic; N18.9 Chronic kidney disease, unspecified; Z85.3 Personal history of malignant neoplasm of breast; Z95.0 Presence of cardiac pacemaker; Z90.12 Acquired absence of left breast and nipple
CPT/HCPCS: 36415; 70450; 76770; 80053; 82140; 84439; 84443; 85025; 93005; G0378; J2405; J7030

== ENCOUNTER 2019-09-10 00:40 | Inpatient (IN) | payer BC, MEDICARE ==
[~2019-09-10] VITALS: Ht 170.2 cm; Wt 59.6 kg
[~2019-09-10 00:40] MED LIST changes: +ALBU18HF INH; +BUSP30TA PO; +CARV3.122 PO; +DICL1KIT14 TP; +FLUTICASON; +LISI-170 PO; +MIRT30TA97 PO; +ONDA4TAB13 SL; +ONDA4TAB7 PO; +QUET100T4 PO; +ROPI2TAB4 PO; +SERT100T32 PO; +TOPI100T8 PO; +ZOLP12.54 PO
[2019-09-10] MEDS ORDERED: SODIUM CHLORIDE FLUSH 10ML SYR IVF ONE (01:00)
[2019-09-10] MEDS ORDERED: NOREPINEPHRINE 4 MG in SODIUM CHLORIDE 0.9% 246 ML IV PRN ×2 (01:03→03:00)
--- NOTE | 2019-09-10 01:05 | NUR ---
PT INTUBATED WITH GLIDESCOPE 8.0 TUBE, 25 CM AT LIP. O2 100% PEEP 5, RR 20 ET 35.
[2019-09-10 01:11] LABS: RAPID INFLUENZA A Negative (Negative); RAPID INFLUENZA B Negative (Negative)
[2019-09-10 01:28] LABS: BASOPHILS # (AUTO) 0.01 x10^3/uL (0-0.1); BASOPHILS % (AUTO) 0 % (0-1); EOSINOPHILS # (AUTO) 0.05 x10^3/uL (0-0.4); EOSINOPHILS % (AUTO) 0 % (1-7); LYMPHOCYTES # (AUTO) 0.95 x10^3/uL (1-3.4); LYMPHOCYTES % (AUTO) 5 % (22-44); MD NO; MEAN CORPUSCULAR HEMOGLOBIN 30.9 pg (27.0-34.8); MEAN CORPUSCULAR HGB CONC 32.4 g/dL (32.4-35.8); MEAN CORPUSCULAR VOLUME 95.4 fL (80-100); MEAN PLATELET VOLUME 7.7 fL (7.4-10.4); MONOCYTES # (AUTO) 0.44 x10^3/uL (0.2-0.8); MONOCYTES % (AUTO) 3 % (2-9); NEUTROPHILS # (AUTO) 16.09 x10^3/uL (1.8-6.8); NEUTROPHILS % (AUTO) 92 % (42-75); PLATELET COUNT 248 x10^3/uL (130-400); RED BLOOD COUNT 4.06 x10^6/uL (3.82-5.3); RED CELL DISTRIBUTION WIDTH 15.2 % (9.6-15.2)
[2019-09-10] MEDS ORDERED: ETOMIDATE 20 MG/10 ML IV ONE (01:30)
[2019-09-10] MEDS ORDERED: SUCCINYLCHOLINE 20 MG/ML, 10ML IVPush ONE (01:30)
[2019-09-10 01:36] LABS: INTERNATIONAL NORMALIZED RATIO 1.1 (0.93-1.1); PROTHROMBIN TIME 11.5 Seconds (9.6-11.5)
[2019-09-10 01:38] LABS: ALANINE AMINOTRANSFERASE 23 U/L (12-78); ANION GAP 4 mmol/L (5-15); CALCIUM 8.1 mg/dL (8.5-10.1); CHLORIDE 117 mmol/L (98-107); CREATININE 0.91 mg/dL (0.55-1.02)
[2019-09-10 01:42] LABS: ALKALINE PHOSPHATASE 162 U/L (45-117); BILIRUBIN,TOTAL 0.6 mg/dL (0.2-1.0); TOTAL PROTEIN 6.7 g/dL (6.4-8.2); TROPONIN I < 0.015 ng/mL (0.000-0.045)
[2019-09-10] MEDS ORDERED: CEFTRIAXONE PMX 1GM/50ML 50 ML IVPB ONE (02:00)
[2019-09-10] MEDS ORDERED: FUROSEMIDE 40 MG/4 ML IV ONE (02:00)
[2019-09-10] MEDS ORDERED: VANCOMYCIN PER PHARMACY MC PRN ×2 (02:00→03:00)
[2019-09-10] MEDS ORDERED: VANCOMYCIN 1,200 MG in SODIUM CHLORIDE 0.9% 250 ML IV ONE (02:30)
[2019-09-10] MEDS: PROPOFOL 100 ML IV PRN ×3 (02:51→23:03)
[2019-09-10] MEDS ORDERED: FUROSEMIDE 40 MG/4 ML ONE (02:53)
[2019-09-10] MEDS ORDERED: DOXYCYCLINE 100 MG in DEXTROSE 5% 250 ML IV SCH (03:00)
[2019-09-10] MEDS ORDERED: ACETAMINOPHEN 325 MG TABLET PO PRN (03:00)
[2019-09-10] MEDS ORDERED: ONDANSETRON 2MG/ML, 2ML IVPush PRN (03:00)
[2019-09-10] MEDS ORDERED: PHARMACOKINETIC MONITORING MC PRN (03:30)
[2019-09-10] MEDS ORDERED: CEFTRIAXONE PMX 1GM/50ML 50 ML IV ONE (03:30)
[2019-09-10] MEDS ORDERED: DEXMEDETOMIDINE 1,000 MCG in SODIUM CHLORIDE 0.9% 240 ML IV PRN ×2 (03:33→22:00)
[2019-09-10] MEDS ORDERED: LACTULOSE 20 GM/30 ML UDC NG PRN (04:00)
[2019-09-10] MEDS ORDERED: FENTANYL PF 100 MCG/2ML IVPush PRN (04:00)
[2019-09-10] MEDS ORDERED: SENNA/DOCUSATE TABLET NG PRN (04:00)
[2019-09-10] MEDS ORDERED: PROPOFOL 100 ML IV PRN (04:00)
[2019-09-10] MEDS ORDERED: ACETAMINOPHEN 650 MG/20.3 ML UDC NG PRN (04:00)
[2019-09-10] MEDS ORDERED: PIPERACILLIN/TAZO/PMX 3.375GM 50 ML IV SCH (04:00)
[2019-09-10] MEDS ORDERED: VANCOMYCIN IV SCH (04:00)
[2019-09-10] MEDS ORDERED: PHARMACY MAY ADJ FOR RENAL FX MC SCH (04:00)
[2019-09-10] MEDS ORDERED: LIDOCAINE-MPF 1%, 2ML ENDO PRN (04:00)
[2019-09-10] MEDS: ALBUTEROL/IPRATROPIUM 2.5MG/0.5MG, 3 ML INLINE SCH ×6 (04:00→22:35)
[2019-09-10] MEDS ORDERED: SENNA 176 MG/5 ML ORAL SOL NG PRN (04:00)
[2019-09-10] MEDS ORDERED: BISACODYL 10 MG SUPP PR PRN (04:00)
[2019-09-10 04:07] LABS: FREE T4 (FREE THYROXINE) 0.72 ng/dL (0.76-1.46)
[2019-09-10 04:23] LABS: MICROSCOPIC NOT IND
[2019-09-10 04:25] LABS: CULTURE INDICATED? NO
[2019-09-10 04:34] LABS: AMPHETAMINE SCREEN, URINE Negative (Negative); BARBITURATE SCREEN, URINE Negative (Negative); BENZODIAZEPINE SCREEN, URINE Positive (Negative); CANNABINOID SCREEN, URINE Negative (Negative); COCAINE SCREEN, URINE Negative (Negative); METHADONE SCREEN, URINE Negative (Negative); OPIATE SCREEN, URINE Positive (Negative)
[2019-09-10 05:51] VITALS: BP 122/73
[2019-09-10 06:22] LABS: ALANINE AMINOTRANSFERASE 20 U/L (12-78); ALBUMIN 2.6 g/dL (3.4-5.0); ANION GAP 7 mmol/L (5-15); CALCIUM 7.8 mg/dL (8.5-10.1); CHLORIDE 113 mmol/L (98-107); CREATININE 0.79 mg/dL (0.55-1.02)
[2019-09-10 06:26] LABS: ALKALINE PHOSPHATASE 154 U/L (45-117); BILIRUBIN,TOTAL 0.5 mg/dL (0.2-1.0); TOTAL PROTEIN 5.9 g/dL (6.4-8.2); TROPONIN I < 0.015 ng/mL (0.000-0.045)
[2019-09-10 06:28] LABS: SALICYLATE LEVEL 6.9 mg/dL (2.8-20.0)
[2019-09-10 07:35] LABS: MEAN CORPUSCULAR HEMOGLOBIN 30.6 pg (27.0-34.8); MEAN CORPUSCULAR HGB CONC 32.3 g/dL (32.4-35.8); MEAN CORPUSCULAR VOLUME 94.7 fL (80-100); MEAN PLATELET VOLUME 7.8 fL (7.4-10.4); PLATELET COUNT 205 x10^3/uL (130-400); RED BLOOD COUNT 3.61 x10^6/uL (3.82-5.3)
[2019-09-10] MEDS ORDERED: ETOMIDATE 20 MG/10 ML ONE (08:00)
[2019-09-10] MEDS ORDERED: SUCCINYLCHOLINE 20 MG/ML, 10ML ONE (08:00)
[2019-09-10] MEDS ORDERED: MIDAZOLAM 1 MG/ML, 5ML ONE (08:00)
[2019-09-10] MEDS ORDERED: PROPOFOL 10 MG/ML, 20ML ONE (08:00)
[2019-09-10] MEDS ORDERED: PROPOFOL 100 ML IV ONE (08:00)
[2019-09-10 08:01] LABS: BASOPHILS # (AUTO) 0.04 x10^3/uL (0-0.1); BASOPHILS % (AUTO) 0 % (0-1); EOSINOPHILS # (AUTO) 0.16 x10^3/uL (0-0.4); EOSINOPHILS % (AUTO) 1 % (1-7); LYMPHOCYTES % (AUTO) 10 % (22-44); MD SCAN; MONOCYTES # (AUTO) 0.38 x10^3/uL (0.2-0.8); MONOCYTES % (AUTO) 3 % (2-9); NEUTROPHILS # (AUTO) 9.67 x10^3/uL (1.8-6.8); NEUTROPHILS % (AUTO) 85 % (42-75)
[2019-09-10] MEDS: FUROSEMIDE 20 MG/2 ML IV SCH ×2 (08:47→20:04)
[2019-09-10] MEDS: AZITHROMYCIN 500 MG in SODIUM CHLORIDE 0.9% 250 ML IV SCH (08:47)
[2019-09-10] MEDS: SERTRALINE 100MG TABLET PO SCH (08:48)
[2019-09-10] MEDS: TOPIRAMATE 100 MG TABLET PO SCH (08:48)
[2019-09-10] MEDS: FAMOTIDINE 20 MG/2 ML IVPush SCH ×2 (08:51→20:04)
[2019-09-10] MEDS: ENOXAPARIN 40 MG/0.4 ML SQ SCH (08:52)
[2019-09-10] MEDS ORDERED: PANTOPRAZOLE 40 MG IV IV SCH (09:00)
[2019-09-10] MEDS ORDERED: OLANZAPINE 5 MG TABLET PO SCH (09:00)
[2019-09-10] MEDS: HYDROCORTISONE 100 MG INJ. IV SCH ×2 (09:25→16:32)
[2019-09-10] MEDS: MIDAZOLAM 1 MG/ML, 2ML IVPush PRN ×4 (10:29→20:03)
[2019-09-10 10:42] LABS: TROPONIN I < 0.015 ng/mL (0.000-0.045)
--- NOTE | 2019-09-10 11:04 | NUR ---
TF GOAL: w/ propofol: PROMOTE @ 60ml/hr off propofol: 65ml/hr
[2019-09-10] MEDS: DEXMEDETOMIDINE 200 MCG in SODIUM CHLORIDE 0.9% 48 ML IV PRN ×2 (19:47→20:04)
[2019-09-10] MEDS ORDERED: QUETIAPINE 100MG TABLET PO SCH (21:00)
[2019-09-10] MEDS ORDERED: MIRTAZAPINE 30 MG TAB.RAPDIS PO SCH (21:00)
[2019-09-11] MEDS: HYDROCORTISONE 100 MG INJ. IV SCH ×2 (00:30→08:51)
[2019-09-11] MEDS: ALBUTEROL/IPRATROPIUM 2.5MG/0.5MG, 3 ML INLINE SCH ×2 (02:39→06:40)
[2019-09-11] MEDS: PROPOFOL 100 ML IV PRN (02:52)
[2019-09-11] MEDS: CEFTRIAXONE PMX 2GM/50ML 50 ML IV SCH (02:52)
[2019-09-11 04:38] LABS: BASOPHILS % (AUTO) 0 % (0-1); EOSINOPHILS % (AUTO) 0 % (1-7); LYMPHOCYTES # (AUTO) 0.49 x10^3/uL (1-3.4); LYMPHOCYTES % (AUTO) 5 % (22-44); MD NO; MEAN CORPUSCULAR HEMOGLOBIN 30.9 pg (27.0-34.8); MEAN CORPUSCULAR HGB CONC 32.8 g/dL (32.4-35.8); MEAN CORPUSCULAR VOLUME 94.2 fL (80-100); MEAN PLATELET VOLUME 7.6 fL (7.4-10.4); MONOCYTES # (AUTO) 0.29 x10^3/uL (0.2-0.8); MONOCYTES % (AUTO) 3 % (2-9); NEUTROPHILS % (AUTO) 92 % (42-75); PLATELET COUNT 210 x10^3/uL (130-400); RED CELL DISTRIBUTION WIDTH 14.3 % (9.6-15.2)
[2019-09-11 04:50] LABS: ANION GAP 6 mmol/L (5-15); CALCIUM 8.6 mg/dL (8.5-10.1); CHLORIDE 109 mmol/L (98-107); CREATININE 0.73 mg/dL (0.55-1.02)
[2019-09-11] MEDS ORDERED: POTASSIUM CHLORIDE 10% 40 MEQ/30 ML UDC PO ONE (05:30)
[2019-09-11] MEDS: LEVOTHYROXINE 75 MCG TABLET PO SCH (05:36)
[2019-09-11] MEDS: AZITHROMYCIN 500 MG in SODIUM CHLORIDE 0.9% 250 ML IV SCH (07:46)
[2019-09-11] MEDS: FUROSEMIDE 20 MG/2 ML IV SCH ×2 (08:51→21:20)
[2019-09-11] MEDS: FAMOTIDINE 20 MG/2 ML IVPush SCH (08:51)
[2019-09-11] MEDS: POTASSIUM CHLORIDE 10% 40 MEQ/30 ML UDC PO SCH ×2 (08:51→21:20)
[2019-09-11] MEDS: TOPIRAMATE 100 MG TABLET PO SCH (08:52)
[2019-09-11] MEDS: SERTRALINE 100MG TABLET PO SCH (08:52)
[2019-09-11] MEDS: ENOXAPARIN 40 MG/0.4 ML SQ SCH (08:52)
[2019-09-11] MEDS ORDERED: ALBUTEROL SULFATE 2.5 MG/3 ML NPPB PRN (10:00)
[2019-09-11] MEDS ORDERED: NICOTINE 21 MG/24 HR PATCH.TD24 ONE (15:13)
[2019-09-11] MEDS ORDERED: ZOLPIDEM 5MG TABLET PO ONE (23:00)
[2019-09-12] MEDS: CEFTRIAXONE PMX 2GM/50ML 50 ML IV SCH (03:19)
[2019-09-12 03:46] LABS: BASOPHILS % (AUTO) 0 % (0-1); EOSINOPHILS # (AUTO) 0.12 x10^3/uL (0-0.4); EOSINOPHILS % (AUTO) 1 % (1-7); LYMPHOCYTES # (AUTO) 1.32 x10^3/uL (1-3.4); LYMPHOCYTES % (AUTO) 13 % (22-44); MD NO; MEAN CORPUSCULAR HEMOGLOBIN 30.8 pg (27.0-34.8); MEAN CORPUSCULAR HGB CONC 32.7 g/dL (32.4-35.8); MEAN PLATELET VOLUME 7.7 fL (7.4-10.4); MONOCYTES # (AUTO) 0.25 x10^3/uL (0.2-0.8); MONOCYTES % (AUTO) 3 % (2-9); NEUTROPHILS # (AUTO) 8.34 x10^3/uL (1.8-6.8); NEUTROPHILS % (AUTO) 83 % (42-75); PLATELET COUNT 262 x10^3/uL (130-400); RED CELL DISTRIBUTION WIDTH 14.8 % (9.6-15.2)
[2019-09-12 03:51] LABS: ANION GAP 5 mmol/L (5-15); CALCIUM 8.7 mg/dL (8.5-10.1); CHLORIDE 110 mmol/L (98-107)
[2019-09-12] MEDS: LEVOTHYROXINE 75 MCG TABLET PO SCH (05:47)
[2019-09-12] MEDS ORDERED: NICOTINE 21 MG/24 HR PATCH.TD24 TD SCH (09:00)
[2019-09-12] MEDS: ENOXAPARIN 40 MG/0.4 ML SQ SCH (09:02)
[2019-09-12] MEDS: SERTRALINE 100MG TABLET PO SCH (09:02)
[2019-09-12] MEDS: TOPIRAMATE 100 MG TABLET PO SCH (09:02)
[2019-09-12] MEDS: FUROSEMIDE 20 MG/2 ML IV SCH (09:03)
[2019-09-12] MEDS: AZITHROMYCIN 500 MG in SODIUM CHLORIDE 0.9% 250 ML IV SCH (09:04)
[2019-09-12 10:34] VITALS: BP 96/65
[2019-09-12 13:46] VITALS: BP 101/69
[2019-09-12] MEDS ORDERED: CEFD300C37 PO (14:41)
== END 2019-09-12 16:45 | disposition home or self-care (01) | DRG 871 ==
LOC: ED 01:51 → EDIP 01:56 → ED 02:01 → CCU 03:18 → 3N 09-12 10:33
PROVIDERS: ADMIT Family Medicine; ATTEND Family Medicine
PROC: 0T9B70Z Drainage of Bladder with Drainage Device, Via Natural or Artificial Opening (ICD-10-PCS; principal; 2019-09-10)
PROC: 5A1935Z Respiratory Ventilation, Less than 24 Consecutive Hours (ICD-10-PCS; 2019-09-10)
PROC: 0BH17EZ Insertion of Endotracheal Airway into Trachea, Via Natural or Artificial Opening (ICD-10-PCS; 2019-09-10)
PROC: 02HV33Z Insertion of Infusion Device into Superior Vena Cava, Percutaneous Approach (ICD-10-PCS; 2019-09-10)
PROC: B548ZZA Ultrasonography of Superior Vena Cava, Guidance (ICD-10-PCS; 2019-09-10)
DX: A41.59 Other Gram-negative sepsis (principal); I50.23 Acute on chronic systolic (congestive) heart failure; J15.9 Unspecified bacterial pneumonia; J96.21 Acute and chronic respiratory failure with hypoxia; J96.22 Acute and chronic respiratory failure with hypercapnia; R65.21 Severe sepsis with septic shock; E27.40 Unspecified adrenocortical insufficiency; I42.9 Cardiomyopathy, unspecified; Z99.11 Dependence on respirator [ventilator] status; E03.9 Hypothyroidism, unspecified; F31.9 Bipolar disorder, unspecified; F41.9 Anxiety disorder, unspecified; G25.81 Restless legs syndrome; G43.909 Migraine, unspecified, not intractable, without status migrainosus; Z88.8 Allergy status to other drugs, medicaments and biological substances; I08.1 Rheumatic disorders of both mitral and tricuspid valves; I11.0 Hypertensive heart disease with heart failure; I25.10 Atherosclerotic heart disease of native coronary artery without angina pectoris; I25.2 Old myocardial infarction; I27.20 Pulmonary hypertension, unspecified; Z85.3 Personal history of malignant neoplasm of breast; Z86.73 Personal history of transient ischemic attack (TIA), and cerebral infarction without residual deficits; Z87.891 Personal history of nicotine dependence; Z90.13 Acquired absence of bilateral breasts and nipples; Z92.21 Personal history of antineoplastic chemotherapy; Z92.3 Personal history of irradiation; Z90.710 Acquired absence of both cervix and uterus; Z95.810 Presence of automatic (implantable) cardiac defibrillator; Z96.651 Presence of right artificial knee joint
CPT/HCPCS: 36415; 36600; 84145; 87400; J3490; J7613; J7620; 71045; 80048; 80053; 80307; 81003; 82533; 82803; 83605; 83735; 83880; 84100; 84439; 84443; 84484; 85025; 85610; 85730; 87040; 87070; 87077; 87081; 87186; 87205; 93005; 93306; 94002; 94003; 94150; 94640; G0378; J0456; J0696; J1650; J2250; J2543; J2704; J3010; J3370; J7060; J0330; J1720; J1940; J7050

== ENCOUNTER 2020-08-25 19:13 | Emergency (ER) | payer BC, MEDICARE ==
[~2020-08-25] VITALS: Ht 172.7 cm; Wt 51.1 kg
[~2020-08-25 19:13] MED LIST changes: +CEFD300C37 PO; +CLON-364 PO; -CLON0.5T11 PO; -HYDR50TA13 PO; +HYDR50TA99 PO; -LAMO100T PO; +LAMO100T8 PO; -ROPI0.5T2 PO; +ROPI0.5T4 PO; -ROPI2TAB4 PO; +ROPI2TAB8 PO; -ZOLP12.54 PO; +ZOLP12.56 PO
[2020-08-25 19:42] LABS: BASOPHILS % (AUTO) 1 % (0-1); EOSINOPHILS % (AUTO) 3 % (1-7); LYMPHOCYTES % (AUTO) 23 % (22-44); MEAN CORPUSCULAR HEMOGLOBIN 26.9 pg (27.0-34.8); MEAN CORPUSCULAR HGB CONC 32.6 g/dL (32.4-35.8); MEAN PLATELET VOLUME 7.2 fL (7.4-10.4); MONOCYTES % (AUTO) 11 % (2-9); NEUTROPHILS % (AUTO) 63 % (42-75); PLATELET COUNT 314 x10^3/uL (130-400); RED BLOOD COUNT 4.79 x10^6/uL (3.82-5.3); RED CELL DISTRIBUTION WIDTH 17.6 % (9.6-15.2)
[2020-08-25 19:44] LABS: MICROSCOPIC NOT IND
[2020-08-25 19:46] LABS: MD NO
--- NOTE | 2020-08-25 19:57 | NUR ---
MEDIA RELATIONS COORDINATOR: PT. TO ROOM FROM LOBBY AT THIS TIME.
[2020-08-25 20:03] LABS: ALANINE AMINOTRANSFERASE 13 U/L (12-78); ALBUMIN 3.2 g/dL (3.4-5.0); ALKALINE PHOSPHATASE 191 U/L (45-117); ANION GAP 6 mmol/L (5-15); BILIRUBIN,TOTAL 0.3 mg/dL (0.2-1.0); CHLORIDE 104 mmol/L (98-107); CREATININE 0.95 mg/dL (0.55-1.02); TOTAL PROTEIN 7.3 g/dL (6.4-8.2)
--- NOTE | 2020-08-25 20:10 | NUR ---
THIS IS A 45 YO F W/ C/O N/V AND SOB SINCE . PT REPORTS STARTING SUBOXONE IN SET IN ORDER TO STOP TAKING TRAMADOL. PT RESTING ON GURNEY W/ CALL LIGHT IN REACH AND SIDE RAILS UPX2. VSS, NADN. PT REQUESTING FOOD, INSTRUCTED TO REMAIN NPO UNTIL EVAL. FAMILY AT BEDSIDE.
[2020-08-25 20:14] VITALS: BP 158/68
[2020-08-25 21:22] LABS: TROPONIN I < 0.015 ng/mL (0.000-0.045)
[2020-08-25 22:01] LABS: FREE T4 (FREE THYROXINE) 0.71 ng/dL (0.76-1.46)
--- NOTE | 2020-08-25 22:03 | NUR ---
AT BEDSIDE FOR RECHECK.
--- NOTE | 2020-08-25 22:18 | NUR ---
Patient given discharge instructions and they have confirmed that they understand the instructions. Patient ambulatory with steady gait.
== END 2020-08-25 22:19 | disposition home or self-care (01) ==
LOC: ED 19:43
DX: R11.2 Nausea with vomiting, unspecified (principal); F17.210 Nicotine dependence, cigarettes, uncomplicated; I11.0 Hypertensive heart disease with heart failure; I50.9 Heart failure, unspecified; E03.9 Hypothyroidism, unspecified; I25.2 Old myocardial infarction; Z90.89 Acquired absence of other organs; Z90.49 Acquired absence of other specified parts of digestive tract; Z86.73 Personal history of transient ischemic attack (TIA), and cerebral infarction without residual deficits; Z85.3 Personal history of malignant neoplasm of breast
CPT/HCPCS: 36415; 74176; 80053; 81003; 83690; 84439; 84443; 84484; 84703; 85025; 99284; 99406

== ENCOUNTER 2020-10-24 18:26 | Inpatient (IN) | payer BC, MEDICARE ==
[~2020-10-24] VITALS: Ht 175.3 cm; Wt 49.0 kg
[~2020-10-24 18:26] MED LIST changes: -NICO-487 TD; +NICO-587 TD; +VANCOMYCIN PMX 1GM/200ML 200 ML IV SCH
--- NOTE | 2020-10-24 18:41 | NUR ---
pt BIB [facility] as a transfer from [facility] for evaluation of ALOC and hypotension per report, pt was BIB [facility] after being altered for 3 days and getting increasingly worse while at the same time using a lot of meth. pt has a hx of meth abuse and has multiple wounds all over her body that are at various stages of healing. pt mucous membranes very dry pt is aware that she is at [facility] in [place]. no family at bedside pt had levophed infusing on admit that has been stopped. vanco infusing on admit pt has a wound to coccyx that is black and ozzing serosanguinous fluid pt has a ocasio in place from previous facility that was placed today
--- NOTE | 2020-10-24 18:51 | NUR ---
Dr Gonzalez has been to bedside for eval lab at bedside to draw report to Mary BELLA and Yessica BELLA
--- NOTE | 2020-10-24 18:55 | NUR ---
BEDSIDE REPORT FROM MARYJANE RN. PT CARE TRANSFERED AT THIS TIME. WARMING MEASURES IN PLACE, RECTAL TEMP 94.1. PT PROVIDED WITH MOUTH SWABS REQUESTED. DR ROBERTS TO BEDSIDE.
[2020-10-24] MEDS ORDERED: POTASSIUM CHLORIDE 40 MEQ in SODIUM CHLORIDE 0.9% 500 ML IV ONE (19:00)
[2020-10-24] MEDS ORDERED: NOREPINEPHRINE 8 MG in SODIUM CHLORIDE 0.9% 242 ML IV PRN ×2 (19:00→21:00)
--- NOTE | 2020-10-24 19:08 | NUR ---
DR. ROBERTS AT BEDSIDE FOR ASSESSMENT
[2020-10-24 19:09] LABS: MEAN CORPUSCULAR HGB CONC 33.8 g/dL (32.4-35.8); MEAN PLATELET VOLUME 8.1 fL (7.4-10.4); PLATELET COUNT 53 x10^3/uL (130-400); RED CELL DISTRIBUTION WIDTH 18.5 % (9.6-15.2)
--- NOTE | 2020-10-24 19:11 | NUR ---
MEDS REQUESTED FROM PHARMACY.
[2020-10-24] MEDS ORDERED: FENTANYL PF 100 MCG/2ML ONE (19:13)
--- NOTE | 2020-10-24 19:18 | NUR ---
PT MEDICATED PER [facility] FOR PAIN AT THIS TIME TOLERATED WELL.
[2020-10-24 19:19] LABS: ALBUMIN 1.8 g/dL (3.4-5.0); ANION GAP 9 mmol/L (5-15); CALCIUM 8.5 mg/dL (8.5-10.1); CHLORIDE 108 mmol/L (98-107); CREATININE 1.82 mg/dL (0.55-1.02)
[2020-10-24 19:22] LABS: TROPONIN I < 0.015 ng/mL (0.000-0.045)
[2020-10-24 19:28] LABS: MD YES
[2020-10-24] MEDS ORDERED: VANCOMYCIN 1,100 MG in SODIUM CHLORIDE 0.9% 250 ML IV ONE (19:30)
[2020-10-24] MEDS ORDERED: VANCOMYCIN PER PHARMACY MC PRN ×2 (19:30→21:00)
[2020-10-24] MEDS ORDERED: FENTANYL PF 100 MCG/2ML IVPush ONE (19:30)
[2020-10-24] MEDS ORDERED: CLINDAMYCIN PMX 600MG/50ML 50 ML IV ONE (19:30)
--- NOTE | 2020-10-24 19:30 | NUR ---
x-ray at bs for imaging. meds initiated. pt. to go to ct after x-rays.
[2020-10-24 19:32] LABS: ANISOCYTOSIS 1+; BAND#(MANUAL) 1.83 x10^3/uL; BANDS%(MANUAL) 22 % (0-7); LYMPH#(MANUAL) 0.17 x10^3/uL (1-3.4); LYMPHS% (MANUAL) 2 % (22-44); METAMYELOCYTES# (MANUAL) 0.33 x10^3/uL (0-0); METAMYELOCYTES% (MANUAL) 4 % (0-1); MONOS#(MANUAL) 0.25 x10^3/uL (0.3-2.7); MONOS% (MANUAL) 3 % (2-9); SEG#(MANUAL) 5.73 x10^3/uL (1.8-6.8); SEGS% (MANUAL) 69 % (42-75)
[2020-10-24 19:33] LABS: OVALOCYTES 1+; TARGET CELLS 1+
[2020-10-24 19:34] LABS: <PLATELET ESTIMATE> DECREASED
--- NOTE | 2020-10-24 19:48 | NUR ---
INVENTORY CONTROL COORDINATOR PT. RECEIVED LR 1,500ML. LEVOFLOXACIN 750MG. PER CHARTING PT. ALSO RECEIVED VANCO; PER REPORT VANCO WAS NOT CONTINUED EN ROUTE/PT. ARRIVED WITH A FULL BACK OF VANCO THAT HAD NOT BEEN RUN; NEW ORDERS RECEIVED.
--- NOTE | 2020-10-24 19:52 | NUR ---
PT BACK FROM CT AT THIS TIME
--- NOTE | 2020-10-24 19:54 | NUR ---
L AC PIV INFILTRATED, ERP UPDATED, WILL DO CENTRAL LINE
--- NOTE | 2020-10-24 20:19 | NUR ---
CONSENT OBTAINED FOR CENTRAL LINE PLACEMENT, PT UNABLE TO SIGN D/T HAND SWELLING/PAIN
--- NOTE | 2020-10-24 20:20 | NUR ---
R EJ REMOVED PER DR ROBERTS FOR CENTRAL LINE PLACEMENT AT THIS TIME
--- NOTE | 2020-10-24 20:25 | NUR ---
POC PT TO GO TO OR AFTER CENTRAL LINE PLACEMENT.
--- NOTE | 2020-10-24 20:40 | NUR ---
DR ROBERTS AT BEDSIDE FOR CENTRAL LINE PLACEMENT
--- NOTE | 2020-10-24 20:47 | NUR ---
REPORT CALLED TO CEM FROM OR AT THIS TIME. ALL QUESTIONS ADDRESSED.
--- NOTE | 2020-10-24 20:54 | NUR ---
XRAY COMPLETE. OKAY TO USE CENTRAL LINE PER DR ROBERTS
--- NOTE | 2020-10-24 20:56 | NUR ---
DR. GARAY AT BEDSIDE AT THIS TIME FOR ASSESSMENT AND PROCEEDURE DISCUSSION WITH PT.
[2020-10-24] MEDS ORDERED: PHARMACY MAY ADJ FOR RENAL FX MC PRN (21:00)
[2020-10-24] MEDS ORDERED: LEVOFLOXACIN/PMX 750MG/150ML 150 ML IVPB SCH (21:00)
--- NOTE | 2020-10-24 21:10 | NUR ---
PT TO CT AT THIS TIME.
--- NOTE | 2020-10-24 21:26 | NUR ---
PT TO OR AT THIS TIME
[2020-10-24] MEDS ORDERED: PHARMACOKINETIC MONITORING MC PRN (21:30)
[2020-10-24] MEDS ORDERED: PHARMACOKINETIC CONSULTATION MC ONE (21:30)
[2020-10-24] MEDS ORDERED: FENTANYL PF 250 MCG/5ML ONE (22:01)
[2020-10-24] MEDS ORDERED: EPHEDRINE 50 MG/ML, 1ML IM PRN (22:30)
[2020-10-24] MEDS ORDERED: EPHEDRINE 50 MG/ML, 1ML IVPush PRN (22:30)
[2020-10-24] MEDS ORDERED: DIPHENHYDRAMINE 50 MG/ML, 1ML IVPush PRN (22:30)
[2020-10-24] MEDS ORDERED: OXYcodone 5 MG/5 ML ORAL.SOL UDC PO PRN (22:30)
[2020-10-24] MEDS ORDERED: DIAZEPAM 5 MG/ML, 2ML IVPush PRN (22:30)
[2020-10-24] MEDS ORDERED: ONDANSETRON 2MG/ML, 2ML IVPush PRN (22:30)
[2020-10-24] MEDS ORDERED: PROMETHAZINE 25 MG/ML, 1ML IVPush PRN (22:30)
[2020-10-24] MEDS ORDERED: FENTANYL PF 100 MCG/2ML IV PRN (22:30)
[2020-10-24] MEDS ORDERED: HYDROmorphone 1 MG/ML, 1ML INJ IVPush PRN (22:30)
[2020-10-24] MEDS ORDERED: ONDANSETRON 2MG/ML, 2ML ONE (22:51)
[2020-10-24] MEDS ORDERED: VASOPRESSIN 20 UNIT/ML, 1ML ONE (22:51)
[2020-10-24] MEDS ORDERED: PROPOFOL 10 MG/ML, 20ML ONE (22:52)
[2020-10-24] MEDS ORDERED: OMNIPAQUE 350 MG/ML, 100ML BOTTLE ONE (23:15)
[2020-10-24] MEDS ORDERED: VASOPRESSIN 20 UNIT in SODIUM CHLORIDE 0.9% 99 ML IV PRN (23:30)
[2020-10-25] MEDS ORDERED: PROPOFOL 100 ML IV ONE (00:14)
[2020-10-25] MEDS ORDERED: PHENYLEPHRINE 50 MG in SODIUM CHLORIDE 0.9% 245 ML IV PRN (01:00)
[2020-10-25] MEDS: MEROPENEM 500 MG in SODIUM CHLORIDE 0.9% 100 ML IV SCH ×3 (01:14→17:25)
[2020-10-25] MEDS: SODIUM CHLORIDE 0.9% 1,000 ML IV SCH ×3 (01:14→17:00)
[2020-10-25] MEDS ORDERED: PROPOFOL 100 ML IV PRN (01:30)
[2020-10-25 04:01] LABS: CREATININE 1.51 mg/dL (0.55-1.02)
[2020-10-25] MEDS ORDERED: CLINDAMYCIN PMX 600MG/50ML 50 ML IV SCH (06:00)
[2020-10-25 07:27] LABS: MEAN CORPUSCULAR HEMOGLOBIN 28.5 pg (27.0-34.8); MEAN CORPUSCULAR HGB CONC 33.8 g/dL (32.4-35.8); MEAN PLATELET VOLUME 8.1 fL (7.4-10.4); PLATELET COUNT 58 x10^3/uL (130-400); RED BLOOD COUNT 3.31 x10^6/uL (3.82-5.3); RED CELL DISTRIBUTION WIDTH 18.7 % (9.6-15.2)
[2020-10-25 07:39] LABS: ANION GAP 12 mmol/L (5-15); CALCIUM 7.4 mg/dL (8.5-10.1); CHLORIDE 113 mmol/L (98-107); CREATININE 1.39 mg/dL (0.55-1.02)
[2020-10-25 07:40] LABS: ALANINE AMINOTRANSFERASE 83 U/L (12-78); ALBUMIN 1.6 g/dL (3.4-5.0)
[2020-10-25 07:42] LABS: ALKALINE PHOSPHATASE 316 U/L (45-117); BILIRUBIN,TOTAL 0.8 mg/dL (0.2-1.0); TOTAL PROTEIN 4.5 g/dL (6.4-8.2)
[2020-10-25] MEDS ORDERED: VANCOMYCIN PMX 1GM/200ML 200 ML IV SCH ×2 (09:00→15:00)
[2020-10-25] MEDS: POTASSIUM CHLORIDE 40 MEQ in SODIUM CHLORIDE 0.9% 100 ML IV SCH ×2 (09:09→15:36)
[2020-10-25] MEDS ORDERED: FENTANYL PF 100 MCG/2ML IVPush PRN (10:00)
[2020-10-25] MEDS: VANCOMYCIN PMX 1GM/200ML 200 ML IVPB SCH ×2 (10:20→20:53)
[2020-10-25] MEDS ORDERED: MAGNESIUM SULFATE PMX 2GM/50ML 50 ML IV ONE (11:00)
[2020-10-25 11:52] LABS: MD YES
[2020-10-25 11:53] LABS: BAND#(MANUAL) 1.25 x10^3/uL; BANDS%(MANUAL) 15 % (0-7); LYMPH#(MANUAL) 0.33 x10^3/uL (1-3.4); LYMPHS% (MANUAL) 4 % (22-44); MONOS#(MANUAL) 0.08 x10^3/uL (0.3-2.7); MONOS% (MANUAL) 1 % (2-9); SEG#(MANUAL) 6.64 x10^3/uL (1.8-6.8); SEGS% (MANUAL) 80 % (42-75)
[2020-10-25 11:54] LABS: ANISOCYTOSIS 1+
[2020-10-25 11:55] LABS: <PLATELET ESTIMATE> DECREASED; <PLT MORPHOLOGY> NORMAL PLT MORPH
[2020-10-25] MEDS: CLINDAMYCIN PMX 600MG/50ML 50 ML IV SCH ×2 (12:00→18:47)
[2020-10-25] MEDS: OXYcodone IR 5MG TABLET PO PRN ×2 (15:36→20:55)
--- NOTE | 2020-10-25 15:41 | NUR ---
For TF goal please refer to Rd note
[2020-10-26] MEDS: MEROPENEM 500 MG in SODIUM CHLORIDE 0.9% 100 ML IV SCH ×2 (00:53→08:38)
[2020-10-26] MEDS: OXYcodone IR 5MG TABLET PO PRN ×5 (00:54→23:06)
[2020-10-26] MEDS: SODIUM CHLORIDE 0.9% 1,000 ML IV SCH (02:38)
[2020-10-26 06:50] LABS: MEAN CORPUSCULAR HEMOGLOBIN 27.9 pg (27.0-34.8); MEAN CORPUSCULAR HGB CONC 33.9 g/dL (32.4-35.8); MEAN PLATELET VOLUME 7.7 fL (7.4-10.4); PLATELET COUNT 68 x10^3/uL (130-400); RED BLOOD COUNT 3.16 x10^6/uL (3.82-5.3); RED CELL DISTRIBUTION WIDTH 18.7 % (9.6-15.2)
[2020-10-26 07:03] LABS: ALBUMIN 1.6 g/dL (3.4-5.0); ANION GAP 10 mmol/L (5-15); CALCIUM 7.8 mg/dL (8.5-10.1)
[2020-10-26 07:06] LABS: ALANINE AMINOTRANSFERASE 81 U/L (12-78); ALKALINE PHOSPHATASE 249 U/L (45-117); BILIRUBIN,TOTAL 0.8 mg/dL (0.2-1.0); CREATININE 1.02 mg/dL (0.55-1.02); TOTAL PROTEIN 4.6 g/dL (6.4-8.2)
[2020-10-26 07:11] LABS: CHLORIDE 120 mmol/L (98-107)
[2020-10-26 07:34] LABS: MD YES
[2020-10-26 07:36] LABS: <PLATELET ESTIMATE> DECREASED; <PLT MORPHOLOGY> NORMAL PLT MORPH; ANISOCYTOSIS 1+; BAND#(MANUAL) 0.84 x10^3/uL; BANDS%(MANUAL) 10 % (0-7); EOS#(MANUAL) 0.17 x10^3/uL (0.0-0.4); EOS% (MANUAL) 2 % (1-7); LYMPH#(MANUAL) 0.59 x10^3/uL (1-3.4); LYMPHS% (MANUAL) 7 % (22-44); MONOS#(MANUAL) 0.17 x10^3/uL (0.3-2.7); MONOS% (MANUAL) 2 % (2-9); SEG#(MANUAL) 6.64 x10^3/uL (1.8-6.8); SEGS% (MANUAL) 79 % (42-75); TARGET CELLS 1+
[2020-10-26] MEDS: VANCOMYCIN PMX 1GM/200ML 200 ML IVPB SCH (09:44)
[2020-10-26] MEDS: NICOTINE 21 MG/24 HR PATCH.TD24 TD SCH (09:48)
[2020-10-26] MEDS ORDERED: POTASSIUM CHLORIDE 40 MEQ in SODIUM CHLORIDE 0.9% 100 ML IV ONE (10:00)
[2020-10-26] MEDS: THIAMINE 200 MG in SODIUM CHLORIDE 0.9% 50 ML IV SCH (10:58)
[2020-10-26] MEDS: POTASSIUM CHLORIDE 40 MEQ in DEXTROSE 5% 1,000 ML IV SCH (13:15)
[2020-10-26] MEDS ORDERED: FENTANYL PF 100 MCG/2ML ONE ×2 (15:35→18:34)
[2020-10-26] MEDS ORDERED: MIDAZOLAM 1 MG/ML, 2ML ONE (15:35)
[2020-10-26] MEDS ORDERED: CHLORHEXIDINE 15 ML UDC ONE (16:35)
[2020-10-26] MEDS ORDERED: PROMETHAZINE 25 MG/ML, 1ML IVPush PRN (17:00)
[2020-10-26] MEDS ORDERED: MEPERIDINE/PF 25MG/0.5ML IVPush PRN (17:00)
[2020-10-26] MEDS ORDERED: PHENYLEPHRINE 10 MG/ML ONE (17:04)
[2020-10-26] MEDS ORDERED: PROPOFOL 10 MG/ML, 20ML ONE (17:04)
[2020-10-26] MEDS ORDERED: LINEZOLID PMX 600MG/300ML 300 ML IV SCH (18:30)
[2020-10-26] MEDS: FENTANYL PF 100 MCG/2ML IV PRN ×4 (18:39→19:05)
[2020-10-26] MEDS ORDERED: HYDROmorphone 1 MG/ML, 1ML INJ ONE (19:02)
[2020-10-26 19:12] VITALS: BP 120/82
[2020-10-26] MEDS: HYDROmorphone 1 MG/ML, 1ML INJ IVPush PRN ×2 (19:15→19:25)
[2020-10-26 20:06] VITALS: BP 105/58
[2020-10-26] MEDS: DAPTOMYCIN 300 MG in SODIUM CHLORIDE 0.9% 100 ML IV SCH (20:56)
[2020-10-27 00:05] VITALS: BP 100/54
[2020-10-27] MEDS: POTASSIUM CHLORIDE 40 MEQ in DEXTROSE 5% 1,000 ML IV SCH ×2 (02:09→13:24)
[2020-10-27] MEDS: OXYcodone IR 5MG TABLET PO PRN ×4 (03:01→20:46)
[2020-10-27 03:36] VITALS: BP 107/64
[2020-10-27 05:59] LABS: BASOPHILS % (AUTO) 0 % (0-1); EOSINOPHILS % (AUTO) 1 % (1-7); LYMPHOCYTES % (AUTO) 5 % (22-44); MEAN CORPUSCULAR HEMOGLOBIN 27.8 pg (27.0-34.8); MEAN CORPUSCULAR HGB CONC 32.8 g/dL (32.4-35.8); MEAN PLATELET VOLUME 8.2 fL (7.4-10.4); MONOCYTES % (AUTO) 5 % (2-9); NEUTROPHILS % (AUTO) 89 % (42-75); PLATELET COUNT 67 x10^3/uL (130-400); RED BLOOD COUNT 2.79 x10^6/uL (3.82-5.3); RED CELL DISTRIBUTION WIDTH 19.1 % (9.6-15.2)
[2020-10-27 06:07] LABS: ALANINE AMINOTRANSFERASE 61 U/L (12-78); ALBUMIN 1.5 g/dL (3.4-5.0); ANION GAP 4 mmol/L (5-15); CALCIUM 7.7 mg/dL (8.5-10.1); CHLORIDE 112 mmol/L (98-107); CREATININE 0.91 mg/dL (0.55-1.02)
[2020-10-27 06:10] LABS: ALKALINE PHOSPHATASE 191 U/L (45-117); BILIRUBIN,TOTAL 0.6 mg/dL (0.2-1.0); TOTAL PROTEIN 4.6 g/dL (6.4-8.2)
[2020-10-27 06:26] LABS: MD MORPH REVIEW ONLY
[2020-10-27 06:27] LABS: ANISOCYTOSIS 1+
[2020-10-27 06:28] LABS: <PLATELET ESTIMATE> ADEQUATE; <PLT MORPHOLOGY> NORMAL PLT MORPH; TARGET CELLS 1+
[2020-10-27 08:00] VITALS: BP 112/59
[2020-10-27] MEDS ORDERED: BISACODYL 10 MG SUPP PR PRN (08:00)
[2020-10-27 09:36] LABS: HCT (SEDRATE) 23.7 % (34.6-47.8)
[2020-10-27] MEDS: NICOTINE 21 MG/24 HR PATCH.TD24 TD SCH (10:26)
[2020-10-27] MEDS: THIAMINE 200 MG in SODIUM CHLORIDE 0.9% 50 ML IV SCH (10:26)
[2020-10-27 13:06] VITALS: BP 102/62
[2020-10-27] MEDS: ONDANSETRON 2MG/ML, 2ML IVPB PRN (15:50)
[2020-10-27 19:17] VITALS: BP 102/54
[2020-10-27] MEDS: SENNA/DOCUSATE TABLET PO SCH (20:46)
[2020-10-27] MEDS: DAPTOMYCIN 300 MG in SODIUM CHLORIDE 0.9% 100 ML IV SCH (21:30)
[2020-10-28 00:56] VITALS: BP 121/61
[2020-10-28] MEDS: POTASSIUM CHLORIDE 40 MEQ in DEXTROSE 5% 1,000 ML IV SCH ×2 (01:02→20:06)
[2020-10-28] MEDS: OXYcodone IR 5MG TABLET PO PRN ×3 (01:05→21:56)
[2020-10-28 06:17] LABS: BASOPHILS % (AUTO) 0 % (0-1); EOSINOPHILS % (AUTO) 1 % (1-7); LYMPHOCYTES % (AUTO) 13 % (22-44); MEAN CORPUSCULAR HEMOGLOBIN 28.3 pg (27.0-34.8); MEAN CORPUSCULAR HGB CONC 33.2 g/dL (32.4-35.8); MEAN PLATELET VOLUME 8.4 fL (7.4-10.4); MONOCYTES % (AUTO) 5 % (2-9); NEUTROPHILS % (AUTO) 81 % (42-75); PLATELET COUNT 67 x10^3/uL (130-400); RED BLOOD COUNT 2.76 x10^6/uL (3.82-5.3); RED CELL DISTRIBUTION WIDTH 18.4 % (9.6-15.2)
[2020-10-28 06:19] LABS: MD NO
[2020-10-28 06:31] LABS: % IRON SATURATION 38 % (20-55); ANION GAP 3 mmol/L (5-15); CALCIUM 7.5 mg/dL (8.5-10.1); CHLORIDE 107 mmol/L (98-107); CREATININE 0.89 mg/dL (0.55-1.02); IRON LEVEL 63 mcg/dL (50-170); TOTAL IRON BINDING CAPACITY 168 mcg/dL (250-450)
[2020-10-28 07:23] VITALS: BP 92/46
[2020-10-28] MEDS: NICOTINE 21 MG/24 HR PATCH.TD24 TD SCH (10:25)
[2020-10-28] MEDS: SERTRALINE 100MG TABLET PO SCH (10:26)
[2020-10-28] MEDS: ROPINIROLE 1MG TABLET PO SCH (10:26)
[2020-10-28] MEDS: BUSPIRONE 10 MG TABLET PO SCH ×2 (10:26→21:56)
[2020-10-28] MEDS: THIAMINE 200 MG in SODIUM CHLORIDE 0.9% 50 ML IV SCH (10:26)
[2020-10-28] MEDS ORDERED: MAGNESIUM CITRATE 300ML ORAL SOL PO ONE (11:30)
[2020-10-28 13:35] VITALS: BP 105/52
[2020-10-28] MEDS ORDERED: FENTANYL PF 100 MCG/2ML ONE ×2 (16:13→18:22)
[2020-10-28] MEDS ORDERED: MIDAZOLAM 1 MG/ML, 2ML ONE (16:14)
[2020-10-28] MEDS ORDERED: CHLORHEXIDINE 15 ML UDC ONE (16:15)
[2020-10-28] MEDS ORDERED: MIDAZOLAM 1 MG/ML, 2ML IV PRN (16:30)
[2020-10-28] MEDS ORDERED: LABETALOL 5MG/ML, 20ML IV PRN (16:30)
[2020-10-28] MEDS ORDERED: PROMETHAZINE 25 MG/ML, 1ML IVPush PRN (16:30)
[2020-10-28] MEDS ORDERED: OXYcodone 5 MG/5 ML ORAL.SOL UDC PO PRN (16:30)
[2020-10-28] MEDS ORDERED: MEPERIDINE/PF 25MG/0.5ML IVPush PRN (16:30)
[2020-10-28] MEDS ORDERED: ALBUTEROL SULFATE 2.5 MG/3 ML NPPB PRN (16:30)
[2020-10-28] MEDS ORDERED: PROPOFOL 10 MG/ML, 20ML ONE (17:49)
[2020-10-28] MEDS ORDERED: CEFAZOLIN 1,000 MG ONE (17:49)
[2020-10-28] MEDS ORDERED: SUCCINYLCHOLINE 20 MG/ML, 10ML ONE (17:49)
[2020-10-28] MEDS ORDERED: ONDANSETRON 2MG/ML, 2ML ONE (17:49)
[2020-10-28] MEDS ORDERED: HYDROmorphone 1 MG/ML, 1ML INJ ONE (18:22)
[2020-10-28] MEDS ORDERED: OXYcodone 5 MG/5 ML ORAL.SOL UDC ONE (18:22)
[2020-10-28] MEDS: FENTANYL PF 100 MCG/2ML IV PRN ×2 (18:30→18:35)
[2020-10-28 20:38] VITALS: BP 104/55
[2020-10-28] MEDS: SENNA/DOCUSATE TABLET PO SCH (21:56)
[2020-10-28] MEDS: DAPTOMYCIN 300 MG in SODIUM CHLORIDE 0.9% 100 ML IV SCH (21:56)
[2020-10-28] MEDS: QUETIAPINE 100MG TABLET PO SCH (21:56)
[2020-10-28 22:43] LABS: HCG UR SG 1.015 (1.003-1.030)
[2020-10-29] VITALS (12 sets, daily range): BP systolic 77–139; BP diastolic 38–78
[2020-10-29] MEDS ORDERED: SODIUM CHLORIDE 0.9% 1,000 ML IVBOLUS PRN (04:30)
[2020-10-29] MEDS ORDERED: SODIUM CHLORIDE 0.9%, 500ML IVBOLUS ONE ×2 (05:00)
[2020-10-29 05:07] LABS: ANION GAP 3 mmol/L (5-15); CALCIUM 6.9 mg/dL (8.5-10.1); CHLORIDE 107 mmol/L (98-107); CREATININE 0.74 mg/dL (0.55-1.02)
[2020-10-29] MEDS: ROPINIROLE 1MG TABLET PO SCH (09:57)
[2020-10-29] MEDS: NICOTINE 21 MG/24 HR PATCH.TD24 TD SCH (09:57)
[2020-10-29] MEDS: BUSPIRONE 10 MG TABLET PO SCH ×2 (09:57→22:10)
[2020-10-29] MEDS: SERTRALINE 100MG TABLET PO SCH (09:57)
[2020-10-29] MEDS: THIAMINE 200 MG in SODIUM CHLORIDE 0.9% 50 ML IV SCH (12:21)
[2020-10-29] MEDS: POTASSIUM CHLORIDE 40 MEQ in DEXTROSE 5% 1,000 ML IV SCH (13:18)
[2020-10-29] MEDS: ONDANSETRON 2MG/ML, 2ML IVPB PRN (14:52)
[2020-10-29] MEDS: OXYcodone IR 5MG TABLET PO PRN ×2 (14:52→22:43)
[2020-10-29] MEDS ORDERED: MAGNESIUM CITRATE 300ML ORAL SOL ONE (17:31)
[2020-10-29] MEDS: DAPTOMYCIN 300 MG in SODIUM CHLORIDE 0.9% 100 ML IV SCH (22:10)
[2020-10-29] MEDS: SENNA/DOCUSATE TABLET PO SCH (22:10)
[2020-10-29] MEDS: QUETIAPINE 100MG TABLET PO SCH (22:10)
[2020-10-30] VITALS (16 sets, daily range): BP systolic 71–124; BP diastolic 39–88
[2020-10-30] MEDS ORDERED: SODIUM CHLORIDE 0.9% 1,000 ML IVBOLUS PRN (01:00)
[2020-10-30] MEDS: POTASSIUM CHLORIDE 40 MEQ in DEXTROSE 5% 1,000 ML IV SCH ×3 (04:13→17:27)
[2020-10-30 06:04] LABS: BASOPHILS % (AUTO) 0 % (0-1); EOSINOPHILS % (AUTO) 1 % (1-7); LYMPHOCYTES % (AUTO) 14 % (22-44); MEAN CORPUSCULAR HEMOGLOBIN 29.9 pg (27.0-34.8); MEAN CORPUSCULAR HGB CONC 34.1 g/dL (32.4-35.8); MEAN PLATELET VOLUME 8.8 fL (7.4-10.4); MONOCYTES % (AUTO) 4 % (2-9); NEUTROPHILS % (AUTO) 81 % (42-75); PLATELET COUNT 85 x10^3/uL (130-400); RED BLOOD COUNT 3.37 x10^6/uL (3.82-5.3); RED CELL DISTRIBUTION WIDTH 15.9 % (9.6-15.2)
[2020-10-30 06:18] LABS: HCT (SEDRATE) 29.2 % (34.6-47.8)
[2020-10-30 06:36] LABS: MD SCAN
[2020-10-30] MEDS: NICOTINE 21 MG/24 HR PATCH.TD24 TD SCH (09:01)
[2020-10-30] MEDS: ROPINIROLE 1MG TABLET PO SCH (09:01)
[2020-10-30] MEDS: OXYcodone IR 5MG TABLET PO PRN ×4 (09:02→21:58)
[2020-10-30] MEDS: BUSPIRONE 10 MG TABLET PO SCH ×2 (09:02→21:58)
[2020-10-30] MEDS: ONDANSETRON 2MG/ML, 2ML IVPB PRN (09:03)
[2020-10-30] MEDS: SERTRALINE 100MG TABLET PO SCH (09:03)
[2020-10-30] MEDS: THIAMINE 200 MG in SODIUM CHLORIDE 0.9% 50 ML IV SCH (09:39)
[2020-10-30] MEDS: CHLORHEXIDINE 15 ML UDC MM SCH ×2 (16:50→22:14)
[2020-10-30] MEDS: METHYLNALTREXONE 12 MG/0.6 ML SYR SQ SCH (16:51)
[2020-10-30] MEDS: DAPTOMYCIN 300 MG in SODIUM CHLORIDE 0.9% 100 ML IV SCH (21:57)
[2020-10-30] MEDS: SENNA/DOCUSATE TABLET PO SCH (21:57)
[2020-10-30] MEDS: QUETIAPINE 100MG TABLET PO SCH (21:58)
[2020-10-31 00:16] VITALS: BP 113/69
[2020-10-31] MEDS: OXYcodone IR 5MG TABLET PO PRN ×5 (05:56→22:26)
[2020-10-31 07:02] VITALS: BP 125/80
[2020-10-31] MEDS: ROPINIROLE 1MG TABLET PO SCH (08:19)
[2020-10-31] MEDS: BUSPIRONE 10 MG TABLET PO SCH ×2 (08:20→21:31)
[2020-10-31] MEDS: CHLORHEXIDINE 15 ML UDC MM SCH ×3 (08:20→21:31)
[2020-10-31] MEDS: SERTRALINE 100MG TABLET PO SCH (08:20)
[2020-10-31] MEDS: ONDANSETRON 2MG/ML, 2ML IVPB PRN ×2 (08:21→15:57)
[2020-10-31] MEDS ORDERED: FENTANYL PF 100 MCG/2ML ONE (08:53)
[2020-10-31] MEDS ORDERED: MIDAZOLAM 1 MG/ML, 2ML ONE (08:53)
[2020-10-31] MEDS ORDERED: PROPOFOL 10 MG/ML, 20ML ONE (08:55)
[2020-10-31] MEDS ORDERED: SUCCINYLCHOLINE 20 MG/ML, 10ML ONE (08:55)
[2020-10-31] MEDS ORDERED: ONDANSETRON 2MG/ML, 2ML ONE (08:55)
[2020-10-31] MEDS ORDERED: FENTANYL PF 100 MCG/2ML IV PRN ×2 (09:30→10:00)
[2020-10-31] MEDS ORDERED: MIDAZOLAM 1 MG/ML, 2ML IV PRN ×2 (09:30→10:00)
[2020-10-31] MEDS ORDERED: HYDROmorphone 1 MG/ML, 1ML INJ IVPush PRN ×2 (09:30→10:00)
[2020-10-31] MEDS ORDERED: ALBUTEROL SULFATE 2.5 MG/3 ML NPPB PRN ×2 (09:30→10:00)
[2020-10-31] MEDS ORDERED: ACETAMINOPHEN 325 MG TABLET PO PRN (09:30)
[2020-10-31] MEDS ORDERED: hydrALAzine 20 MG/ML, 1ML IV PRN ×2 (09:30→10:00)
[2020-10-31] MEDS ORDERED: ONDANSETRON 2MG/ML, 2ML IVPush PRN ×2 (09:30→10:00)
[2020-10-31] MEDS ORDERED: DIAZEPAM 5 MG/ML, 2ML IVPush PRN ×2 (09:30→10:00)
[2020-10-31] MEDS ORDERED: MEPERIDINE/PF 25MG/0.5ML IVPush PRN ×2 (09:30→10:00)
[2020-10-31] MEDS ORDERED: PROMETHAZINE 12.5 MG SUPP PR PRN ×2 (09:30→10:00)
[2020-10-31] MEDS ORDERED: EPHEDRINE 50 MG/ML, 1ML IVPush PRN ×2 (09:30→10:00)
[2020-10-31] MEDS ORDERED: PROMETHAZINE 25 MG/ML, 1ML IVPush PRN ×2 (09:30→10:00)
[2020-10-31] MEDS ORDERED: LABETALOL 5MG/ML, 20ML IV PRN ×2 (09:30→10:00)
[2020-10-31] MEDS ORDERED: OXYcodone 5 MG/5 ML ORAL.SOL UDC PO PRN ×2 (09:30→10:00)
[2020-10-31] MEDS ORDERED: DIPHENHYDRAMINE 50 MG/ML, 1ML IVPush PRN ×4 (09:30→10:00)
[2020-10-31] MEDS ORDERED: OXYcodone 5 MG/5 ML ORAL.SOL UDC ONE (10:46)
[2020-10-31] MEDS: THIAMINE 200 MG in SODIUM CHLORIDE 0.9% 50 ML IV SCH (11:42)
[2020-10-31] MEDS: SODIUM CHLORIDE 0.9% 1,000 ML IV SCH (11:42)
[2020-10-31] MEDS: NICOTINE 21 MG/24 HR PATCH.TD24 TD SCH (11:42)
[2020-10-31 12:00] VITALS: BP 116/82
[2020-10-31 16:24] LABS: BASOPHILS % (AUTO) 0 % (0-1); EOSINOPHILS % (AUTO) 0 % (1-7); LYMPHOCYTES % (AUTO) 8 % (22-44); MEAN CORPUSCULAR HEMOGLOBIN 29.5 pg (27.0-34.8); MEAN CORPUSCULAR HGB CONC 33.1 g/dL (32.4-35.8); MEAN PLATELET VOLUME 8.6 fL (7.4-10.4); MONOCYTES % (AUTO) 4 % (2-9); NEUTROPHILS % (AUTO) 87 % (42-75); PLATELET COUNT 170 x10^3/uL (130-400); RED BLOOD COUNT 3.83 x10^6/uL (3.82-5.3); RED CELL DISTRIBUTION WIDTH 15.6 % (9.6-15.2)
[2020-10-31 16:28] LABS: MD NO
[2020-10-31 19:09] VITALS: BP 113/56
[2020-10-31] MEDS: SENNA/DOCUSATE TABLET PO SCH (21:30)
[2020-10-31] MEDS: QUETIAPINE 100MG TABLET PO SCH (21:31)
[2020-10-31] MEDS: DAPTOMYCIN 300 MG in SODIUM CHLORIDE 0.9% 100 ML IV SCH (21:32)
[2020-11-01 01:00] VITALS: BP 108/69
[2020-11-01] MEDS: ACETAMINOPHEN 325 MG TABLET PO PRN ×2 (01:20→12:23)
[2020-11-01] MEDS: OXYcodone IR 5MG TABLET PO PRN ×6 (02:22→22:03)
[2020-11-01] MEDS: SODIUM CHLORIDE 0.9% 1,000 ML IV SCH ×2 (04:18→22:02)
[2020-11-01 05:15] LABS: BASOPHILS % (AUTO) 0 % (0-1); EOSINOPHILS % (AUTO) 1 % (1-7); LYMPHOCYTES % (AUTO) 11 % (22-44); MEAN CORPUSCULAR HEMOGLOBIN 30.3 pg (27.0-34.8); MEAN CORPUSCULAR HGB CONC 33.4 g/dL (32.4-35.8); MEAN PLATELET VOLUME 8.2 fL (7.4-10.4); MONOCYTES % (AUTO) 6 % (2-9); NEUTROPHILS % (AUTO) 82 % (42-75); PLATELET COUNT 184 x10^3/uL (130-400); RED BLOOD COUNT 3.54 x10^6/uL (3.82-5.3); RED CELL DISTRIBUTION WIDTH 16.3 % (9.6-15.2)
[2020-11-01 05:18] LABS: HCT (SEDRATE) 31.8 % (34.6-47.8)
[2020-11-01 05:24] LABS: CALCIUM 7.6 mg/dL (8.5-10.1); CHLORIDE 104 mmol/L (98-107)
[2020-11-01 05:38] LABS: ALANINE AMINOTRANSFERASE 41 U/L (12-78); ALBUMIN 1.7 g/dL (3.4-5.0); ALKALINE PHOSPHATASE 159 U/L (45-117); ANION GAP 3 mmol/L (5-15); BILIRUBIN,TOTAL 0.3 mg/dL (0.2-1.0); CREATINE KINASE, TOTAL 56 U/L (26-192); CREATININE 0.65 mg/dL (0.55-1.02); TOTAL PROTEIN 4.9 g/dL (6.4-8.2)
[2020-11-01 05:41] LABS: MD NO
[2020-11-01 07:34] VITALS: BP 133/93
[2020-11-01] MEDS: ROPINIROLE 1MG TABLET PO SCH (08:56)
[2020-11-01] MEDS: BUSPIRONE 10 MG TABLET PO SCH ×2 (08:57→22:02)
[2020-11-01] MEDS: SERTRALINE 100MG TABLET PO SCH (08:57)
[2020-11-01] MEDS: METHYLNALTREXONE 12 MG/0.6 ML SYR SQ SCH (08:58)
[2020-11-01] MEDS: CHLORHEXIDINE 15 ML UDC MM SCH ×3 (08:58→22:02)
[2020-11-01] MEDS: ONDANSETRON 2MG/ML, 2ML IVPB PRN ×2 (08:59→17:01)
[2020-11-01] MEDS: NICOTINE 21 MG/24 HR PATCH.TD24 TD SCH (09:00)
[2020-11-01] MEDS: THIAMINE 200 MG in SODIUM CHLORIDE 0.9% 50 ML IV SCH (11:24)
[2020-11-01 13:11] VITALS: BP 131/82
[2020-11-01 18:17] VITALS: BP 129/87
[2020-11-01] MEDS: SENNA/DOCUSATE TABLET PO SCH (21:00)
[2020-11-01] MEDS: DAPTOMYCIN 300 MG in SODIUM CHLORIDE 0.9% 100 ML IV SCH (22:01)
[2020-11-01] MEDS: QUETIAPINE 100MG TABLET PO SCH (22:03)
[2020-11-02 00:37] VITALS: BP 116/73
[2020-11-02 04:56] LABS: HCT (SEDRATE) 32.9 % (34.6-47.8)
[2020-11-02] MEDS: OXYcodone IR 5MG TABLET PO PRN ×3 (05:03→21:47)
[2020-11-02 06:35] VITALS: BP 139/89
[2020-11-02] MEDS: ONDANSETRON 2MG/ML, 2ML IVPB PRN ×2 (08:16→17:15)
[2020-11-02] MEDS: BUSPIRONE 10 MG TABLET PO SCH ×2 (08:17→21:47)
[2020-11-02] MEDS: ROPINIROLE 1MG TABLET PO SCH (08:17)
[2020-11-02] MEDS: NICOTINE 21 MG/24 HR PATCH.TD24 TD SCH (08:18)
[2020-11-02] MEDS: CHLORHEXIDINE 15 ML UDC MM SCH ×3 (08:46→22:57)
[2020-11-02] MEDS: SERTRALINE 100MG TABLET PO SCH (08:47)
[2020-11-02] MEDS ORDERED: FENTANYL PF 250 MCG/5ML ONE (09:29)
[2020-11-02] MEDS ORDERED: MIDAZOLAM 1 MG/ML, 2ML ONE (09:29)
[2020-11-02] MEDS ORDERED: hydrALAzine 20 MG/ML, 1ML IV PRN (10:00)
[2020-11-02] MEDS ORDERED: FENTANYL PF 100 MCG/2ML IV PRN (10:00)
[2020-11-02] MEDS ORDERED: HYDROmorphone 1 MG/ML, 1ML INJ IVPush PRN (10:00)
[2020-11-02] MEDS ORDERED: PROMETHAZINE 25 MG/ML, 1ML IVPush PRN (10:00)
[2020-11-02] MEDS ORDERED: ACETAMINOPHEN 325 MG TABLET PO PRN (10:00)
[2020-11-02] MEDS ORDERED: HALOPERIDOL 5 MG/ML IV PRN (10:00)
[2020-11-02] MEDS ORDERED: OXYcodone 5 MG/5 ML ORAL.SOL UDC PO PRN (10:00)
[2020-11-02] MEDS ORDERED: MEPERIDINE/PF 25MG/0.5ML IVPush PRN (10:00)
[2020-11-02] MEDS ORDERED: LABETALOL 5MG/ML, 20ML IV PRN (10:00)
[2020-11-02] MEDS ORDERED: DEXAMETHASONE 4 MG/ML, 1ML ONE (10:06)
[2020-11-02] MEDS ORDERED: PROPOFOL 10 MG/ML, 20ML ONE (10:06)
[2020-11-02] MEDS ORDERED: PHENYLEPHRINE 10 MG/ML ONE (10:06)
[2020-11-02] MEDS ORDERED: VASOPRESSIN 20 UNIT/ML, 1ML ONE (10:48)
[2020-11-02] MEDS ORDERED: OXYcodone 5 MG/5 ML ORAL.SOL UDC ONE (11:57)
[2020-11-02 13:02] VITALS: BP 127/80
[2020-11-02] MEDS: ACETAMINOPHEN 325 MG TABLET PO PRN (13:18)
[2020-11-02] MEDS: THIAMINE 200 MG in SODIUM CHLORIDE 0.9% 50 ML IV SCH (13:19)
[2020-11-02] MEDS ORDERED: morphine SULFATE 10 MG/ML, 1ML IVPush PRN (16:00)
[2020-11-02 19:18] VITALS: BP_SYST 147; BP_SYST 206; BP_DIAS 103; BP_DIAS 93
[2020-11-02] MEDS: morphine SULFATE 10 MG/ML, 1ML IVPush PRN (20:36)
[2020-11-02] MEDS: SENNA/DOCUSATE TABLET PO SCH (21:00)
[2020-11-02] MEDS: DAPTOMYCIN 300 MG in SODIUM CHLORIDE 0.9% 100 ML IV SCH (21:46)
[2020-11-02] MEDS: QUETIAPINE 100MG TABLET PO SCH (21:47)
[2020-11-02] MEDS: SODIUM CHLORIDE 0.9% 1,000 ML IV SCH (22:57)
[2020-11-03 00:03] VITALS: BP 130/83
[2020-11-03] MEDS: OXYcodone IR 5MG TABLET PO PRN ×5 (02:17→21:51)
[2020-11-03] MEDS: morphine SULFATE 10 MG/ML, 1ML IVPush PRN (03:35)
[2020-11-03 04:22] VITALS: BP 142/97
[2020-11-03 06:53] VITALS: BP 153/97
[2020-11-03] MEDS: SERTRALINE 100MG TABLET PO SCH (08:20)
[2020-11-03] MEDS: ROPINIROLE 1MG TABLET PO SCH (08:20)
[2020-11-03] MEDS: BUSPIRONE 10 MG TABLET PO SCH ×2 (08:20→21:51)
[2020-11-03] MEDS: NICOTINE 21 MG/24 HR PATCH.TD24 TD SCH (08:21)
[2020-11-03] MEDS: CHLORHEXIDINE 15 ML UDC MM SCH ×3 (09:03→21:52)
[2020-11-03] MEDS: THIAMINE 200 MG in SODIUM CHLORIDE 0.9% 50 ML IV SCH (12:11)
[2020-11-03 12:36] VITALS: BP 153/88
[2020-11-03] MEDS: SODIUM CHLORIDE 0.9% 1,000 ML IV SCH (17:05)
[2020-11-03 21:04] VITALS: BP 148/95
[2020-11-03] MEDS: QUETIAPINE 100MG TABLET PO SCH (21:52)
[2020-11-03] MEDS: SENNA/DOCUSATE TABLET PO SCH (21:52)
[2020-11-03] MEDS: DAPTOMYCIN 300 MG in SODIUM CHLORIDE 0.9% 100 ML IV SCH (23:56)
[2020-11-03] MEDS: ONDANSETRON 2MG/ML, 2ML IVPB PRN (23:56)
[2020-11-04 01:46] VITALS: BP 148/95
[2020-11-04] MEDS: OXYcodone IR 5MG TABLET PO PRN ×3 (03:18→16:14)
[2020-11-04 06:46] VITALS: BP 153/93
[2020-11-04] MEDS: CHLORHEXIDINE 15 ML UDC MM SCH ×3 (09:11→20:38)
[2020-11-04] MEDS: BUSPIRONE 10 MG TABLET PO SCH ×2 (09:11→20:37)
[2020-11-04] MEDS: ROPINIROLE 1MG TABLET PO SCH (09:11)
[2020-11-04] MEDS: SERTRALINE 100MG TABLET PO SCH (09:11)
[2020-11-04] MEDS: NICOTINE 21 MG/24 HR PATCH.TD24 TD SCH (09:14)
[2020-11-04] MEDS: IBUPROFEN 600 MG TABLET PO PRN (11:37)
[2020-11-04] MEDS ORDERED: morphine SULFATE 10 MG/ML, 1ML IVPush PRN (12:00)
[2020-11-04] MEDS: THIAMINE 200 MG in SODIUM CHLORIDE 0.9% 50 ML IV SCH (12:14)
[2020-11-04] MEDS: SODIUM CHLORIDE 0.9% 1,000 ML IV SCH (12:14)
[2020-11-04 12:55] VITALS: BP 139/96
[2020-11-04] MEDS: ACETAMINOPHEN 325 MG TABLET PO PRN (16:14)
[2020-11-04] MEDS: ONDANSETRON 2MG/ML, 2ML IVPB PRN ×2 (16:15→22:32)
[2020-11-04 20:32] VITALS: BP 151/108
[2020-11-04] MEDS: QUETIAPINE 100MG TABLET PO SCH (20:37)
[2020-11-04] MEDS: SENNA/DOCUSATE TABLET PO SCH (20:38)
[2020-11-05] MEDS ORDERED: ROPINIROLE 1MG TABLET PO SCH (01:00)
[2020-11-05] MEDS ORDERED: ROPINIROLE 1MG TABLET ONE (01:03)
[2020-11-05 01:04] VITALS: BP 122/77
[2020-11-05] MEDS: DAPTOMYCIN 300 MG in SODIUM CHLORIDE 0.9% 100 ML IV SCH (01:23)
[2020-11-05] MEDS: FUROSEMIDE 40 MG TABLET PO SCH ×2 (01:25→08:37)
[2020-11-05] MEDS: OXYcodone IR 5MG TABLET PO PRN ×4 (01:25→16:20)
[2020-11-05] MEDS: IBUPROFEN 600 MG TABLET PO PRN (05:40)
[2020-11-05] MEDS: ONDANSETRON 2MG/ML, 2ML IVPB PRN ×2 (05:41→16:19)
[2020-11-05 06:26] LABS: BASOPHILS % (AUTO) 1 % (0-1); EOSINOPHILS % (AUTO) 1 % (1-7); LYMPHOCYTES % (AUTO) 12 % (22-44); MEAN CORPUSCULAR HEMOGLOBIN 29.7 pg (27.0-34.8); MEAN CORPUSCULAR HGB CONC 32.7 g/dL (32.4-35.8); MEAN PLATELET VOLUME 7.6 fL (7.4-10.4); MONOCYTES % (AUTO) 9 % (2-9); NEUTROPHILS % (AUTO) 77 % (42-75); PLATELET COUNT 232 x10^3/uL (130-400); RED BLOOD COUNT 3.48 x10^6/uL (3.82-5.3); RED CELL DISTRIBUTION WIDTH 16.8 % (9.6-15.2)
[2020-11-05 06:28] LABS: MD NO
[2020-11-05 06:33] LABS: ANION GAP 4 mmol/L (5-15); CALCIUM 7.9 mg/dL (8.5-10.1); CHLORIDE 98 mmol/L (98-107)
[2020-11-05 06:35] LABS: CREATININE 0.67 mg/dL (0.55-1.02)
[2020-11-05] MEDS: SODIUM CHLORIDE 0.9% 1,000 ML IV SCH (06:40)
[2020-11-05 07:19] VITALS: BP 143/95
[2020-11-05] MEDS: SERTRALINE 100MG TABLET PO SCH (08:36)
[2020-11-05] MEDS: NICOTINE 21 MG/24 HR PATCH.TD24 TD SCH (08:37)
[2020-11-05] MEDS: CHLORHEXIDINE 15 ML UDC MM SCH (08:37)
[2020-11-05] MEDS: BUSPIRONE 10 MG TABLET PO SCH (08:37)
[2020-11-05] MEDS ORDERED: IBUP-1222 PO (11:04)
[2020-11-05] MEDS ORDERED: OXYC5TAB98 PO (11:04)
[2020-11-05] MEDS ORDERED: DAPT500V6 IV (11:04)
[2020-11-05] MEDS ORDERED: KETOROLAC 30 MG/1 ML IVPush PRN (11:30)
[2020-11-05] MEDS: ACETAMINOPHEN 325 MG TABLET PO PRN (11:44)
[2020-11-05 13:21] VITALS: BP 148/81
[2020-11-05] MEDS: THIAMINE 200 MG in SODIUM CHLORIDE 0.9% 50 ML IV SCH (13:27)
== END 2020-11-05 16:34 | DRG 853 ==
LOC: ED 20:45 → MERGE 20:45 → EDIP 21:12 → CCU 23:38 → 4NE 10-26 15:37
PROVIDERS: ADMIT Internal Medicine; ATTEND Family Medicine
PROC: 0KBC0ZZ Excision of Right Hand Muscle, Open Approach (ICD-10-PCS; 2020-10-24)
PROC: 02HV33Z Insertion of Infusion Device into Superior Vena Cava, Percutaneous Approach (ICD-10-PCS; 2020-10-24)
PROC: B548ZZA Ultrasonography of Superior Vena Cava, Guidance (ICD-10-PCS; 2020-10-24)
PROC: 01N50ZZ Release Median Nerve, Open Approach (ICD-10-PCS; principal; 2020-10-24 21:30)
PROC: 5A1935Z Respiratory Ventilation, Less than 24 Consecutive Hours (ICD-10-PCS; 2020-10-25)
PROC: 0BH17EZ Insertion of Endotracheal Airway into Trachea, Via Natural or Artificial Opening (ICD-10-PCS; 2020-10-25)
PROC: 0KBC0ZZ Excision of Right Hand Muscle, Open Approach (ICD-10-PCS; 2020-10-26)
PROC: 0KBC0ZZ Excision of Right Hand Muscle, Open Approach (ICD-10-PCS; 2020-10-28)
PROC: 30233N1 Transfusion of Nonautologous Red Blood Cells into Peripheral Vein, Percutaneous Approach (ICD-10-PCS; 2020-10-29)
PROC: 0JBJ0ZZ Excision of Right Hand Subcutaneous Tissue and Fascia, Open Approach (ICD-10-PCS; 2020-10-31)
PROC: 02HV33Z Insertion of Infusion Device into Superior Vena Cava, Percutaneous Approach (ICD-10-PCS; 2020-11-03)
PROC: B5181ZA Fluoroscopy of Superior Vena Cava using Low Osmolar Contrast, Guidance (ICD-10-PCS; 2020-11-03)
PROC: B548ZZA Ultrasonography of Superior Vena Cava, Guidance (ICD-10-PCS; 2020-11-03)
DX: A41.01 Sepsis due to Methicillin susceptible Staphylococcus aureus (principal); G92 Toxic encephalopathy; J96.21 Acute and chronic respiratory failure with hypoxia; R65.21 Severe sepsis with septic shock; M72.6 Necrotizing fasciitis; E44.0 Moderate protein-calorie malnutrition; Z68.1 Body mass index [BMI] 19.9 or less, adult; E87.0 Hyperosmolality and hypernatremia; F15.20 Other stimulant dependence, uncomplicated; F31.30 Bipolar disorder, current episode depressed, mild or moderate severity, unspecified; L03.113 Cellulitis of right upper limb; N17.9 Acute kidney failure, unspecified; Z99.11 Dependence on respirator [ventilator] status; T79.A11A Traumatic compartment syndrome of right upper extremity, initial encounter; L02.413 Cutaneous abscess of right upper limb; I50.32 Chronic diastolic (congestive) heart failure; D62 Acute posthemorrhagic anemia; L02.511 Cutaneous abscess of right hand; D69.6 Thrombocytopenia, unspecified; E03.9 Hypothyroidism, unspecified; Z88.8 Allergy status to other drugs, medicaments and biological substances; E83.51 Hypocalcemia; E87.6 Hypokalemia; F12.90 Cannabis use, unspecified, uncomplicated; F10.20 Alcohol dependence, uncomplicated; F17.210 Nicotine dependence, cigarettes, uncomplicated; F43.10 Post-traumatic stress disorder, unspecified; G25.81 Restless legs syndrome; G89.4 Chronic pain syndrome; I34.1 Nonrheumatic mitral (valve) prolapse; K59.09 Other constipation; K12.0 Recurrent oral aphthae; M54.16 Radiculopathy, lumbar region; M60.9 Myositis, unspecified; M65.9 Synovitis and tenosynovitis, unspecified; N63.10 Unspecified lump in the right breast, unspecified quadrant; Z20.822 Contact with and (suspected) exposure to COVID-19; Z76.5 Malingerer [conscious simulation]; Z82.49 Family history of ischemic heart disease and other diseases of the circulatory system; Z79.899 Other long term (current) drug therapy; Z83.3 Family history of diabetes mellitus; Z85.3 Personal history of malignant neoplasm of breast; Z88.0 Allergy status to penicillin; Z88.1 Allergy status to other antibiotic agents; Z90.13 Acquired absence of bilateral breasts and nipples; Z95.810 Presence of automatic (implantable) cardiac defibrillator; Z98.51 Tubal ligation status; Z98.84 Bariatric surgery status; D63.8 Anemia in other chronic diseases classified elsewhere
CPT/HCPCS: 36415; 36430; 36573; 36600; 70450; 71045; 74018; 80048; 80053; 80202; 81025; 82040; 82330; 82533; 82550; 82565; 82803; 82962; 83540; 83550; 83605; 83735; 84100; 84484; 84520; 85014; 85018; 85025; 85651; 86140; 86850; 86900; 86923; 87040; 87070; 87075; 87077; 87081; 87086; 87147; 87186; 87205; 87635; 93005; 93306; 94002; 94003; 96374; 99291; G0378; J0690; J0878; J1100; J1170; J1885; J2185; J2250; J2405; J2704; J3010; J3370; J3411; J3480; J7070; Q9967; C1751; J0330; J2270; J2370; J3475; J7030; J7040; J7050; P9016; Q4100